=== PATIENT | male | born 1945 | race Caucasian/White ===

== ENCOUNTER 2022-02-02 10:15 | Outpatient (RCR) | payer MEDICARE, OTHER, SELFPAY ==
[2022-01-12 10:49] VITALS: BP 188/96; PULSE 66; RESP 16; TEMP 37; BMI 33.0
--- NOTE | 2022-01-12 12:02 | PCM.WC.HP ---
History of Present Illness Date of Service: 01/12/22 Progress of Wound: This 76-year-old male was seen for bilateral leg ulcerations with +1 pitting edema. Edema likely related to hypertension. Patient denies any constitutional symptoms denies any chest pain calf pain shortness of breath. Denies any previous treatments. Denies any use of compression elevation exercise for edema management and has no other complaints at this time. She has been dealing with these wounds for months and has not been treated previously. [facility], LAT[facility] Home Medications furosemide 80 mg tablet 40 mg PO DAILY 04/09/13 [History Last Taken Unknown] irbesartan 150 mg-hydrochlorothiazide 12.5 mg tablet (Avalide) 1 tab PO DAILY 04/09/13 [History Last Taken Unknown] lisinopril 20 mg tablet mg PO DAILY 04/09/13 [History Last Taken Unknown] lysine 500 mg capsule (L-Lysine) 500 mg PO DAILY 04/09/13 [History Last Taken Unknown] naproxen sodium 220 mg tablet (Aleve) 220 mg PO Q8 04/09/13 [History Last Taken Unknown] Ginko Biloba 120 mg OTHER DAILY 01/12/22 [History Last Taken Unknown] Олег's wort 300 mg capsule 300 mg PO DAILY PRN depression 01/12/22 [History Last Taken Unknown] acetaminophen 500 mg tablet (Acetaminophen Extra Strength) 500 mg PO Q6H PRN Pain 01/12/22 [History Last Taken Unknown] chlorpheniramine-acetaminophen 2 mg-325 mg tablet (Coricidin HBP Cold and Flu) 1 tab PO Q6H PRN Cold Symptoms 01/12/22 [History Last Taken Unknown] coenzyme Q10 100 mg capsule (Co Q-10) 100 mg PO DAILY 01/12/22 [History Last Taken Unknown] dextromethorphan-guaifenesin 30 mg-600 mg tablet extended [id number] hr (Mucinex DM) 1 tab PO Q12H PRN Cold Symptoms 01/12/22 [History Last Taken Unknown] ubxdmhydbsy-otm-mohnkwwqi-vitC capsule (Glucosamine Complex-MSM) 2 cap PO DAILY 01/12/22 [History Last Taken Unknown] magnesium 500 PO DAILY 01/12/22 [History Last Taken Unknown] vitamin A-vitamin C-vit E-min tablet 1 tab PO DAILY 01/12/22 [History Last Taken Unknown] zinc 50 mg tablet 50 mg PO DAILY 01/12/22 [History Last Taken Unknown] Allergy/AdvReac Type Severity Reaction Status Date / Time acetaminophen [From Vicodin] Allergy Other Verified 01/12/22 11:25 hydrocodone [From Vicodin] Allergy Other Verified 01/12/22 11:25 propoxyphene Allergy Swelling Verified 04/09/13 15:05 ROS Constitutional Constitutional: Denies chills, headache(s) or stops breathing during sleep Eyes Eyes: Denies acute decrease in peripheral vision, change in vision or double vision ENT HEENT: Denies ear pain, hoarseness or tinnitus Cardiovascular Cardiovascular: Denies abdominal pain, chest pain at rest or dizziness Respiratory/Chest Respiratory/Chest: Reports difficulty clearing secretions and excessive phlegm production; Denies change in mental status Gastrointestinal Gastrointestinal: Denies belching, coffee ground emesis or constipation Genitourinary Genitourinary: Denies genital pain, hematospermia or penile discharge Musculoskeletal Musculoskeletal: Denies myalgias, neck pain or numbness Vital Signs Vital Signs Vital Signs: 01/12/22 10:49 Temperature 98.6 F Temperature Source Temporal Pulse Rate 66 Respiratory Rate 16 Blood Pressure 188/96 H Blood Pressure Mean 126 Blood Pressure Source Monitor Blood Pressure Position Sitting Blood Pressure Location Left Arm Oxygen Delivery Method Room Air Weight Weight: 104.326 kg Body Mass Index (BMI) 33.0 Physical Exam Narrative Is alert oriented person place and time. Vascular: Dorsalis pedis posterior tibial pulses palpable 2 out of 4 to bilateral lower extremity. +1 pitting edema noted. Malleoli region as well as foot and mid calf. No obvious varicosities. Digital hair growth noted. Neurologic: Light touch protective sensation intact to bilateral feet Achilles tendon reflex intact. Dermatologic: Full-thickness wound to right lateral leg with multiple clustered wounds to bilateral lower extremities. These wounds are full-thickness in nature with no deep probing or undermining moderate serous drainage noted mild periwound erythema no other signs of infection. Musculoskeletal: Muscular strength full to bilateral lower extremity compartments. No pain with calf squeeze or palpation of popliteal fossa. Debridement Note Debridement Note Post-Debridement Measurements and Additional Note: Post-Debridement Measurements/Treatment ALEXSANDER - Nurse 1 - General Ulcer Assessment Start: 01/12/22 10:48 Freq: Status: Active Protocol: VICENTE Activity Type Activity Date Activity User E-sign Co-sign Detail Recorded Client Recorded Date Recorded By Document 01/12/22 10:49 [facility] [id number] 01/12/22 11:23 BM 01/12/22 10:49 WC - Today's Visit Information Type of service Initial Visit Arrival Mode Ambulatory,Cane ,Walker Accompanied by DAUGHTER Patient Identification Verified (Name & Yes ) Patient Requires Transmission-Based No Precautions Height and Weight Height 5 ft 10 in Weight 104.326 kg Weight in Pounds 230.0 lbs Weight Measurement Method Stated by Patient Body Mass Index (BMI) 33.0 BMI Classification Obese BSA - Cass 2.22 Vital Signs Temperature (97.8 F-99.1 F) 98.6 F Temperature Source Temporal Pulse Rate (60-100) 66 Pulse Location Monitor Respiratory Rate (12-18) 16 Respiratory rate source Observation Oxygen Delivery Method Room Air Blood Pressure (90/60-120/80) 188/96 H Blood Pressure Mean 126 Source Monitor Position Sitting Blood Pressure Location Left Arm Comment COUNSELED REGARDING BP. TAKES BP MEDS. History Since Last Visit- (Skip if this is Patient's initial visit) Left Footwear Regular Shoe Right Footwear Regular Shoe Pain Scale: 0-10 Numeric Is Patient Pain Free? Yes Lower Extremity Assessment/ Foot Assessment/ Toe Nail Assessment Right -Posterior Tibial Palpable No -Posterior Tibial Doppler Monophasic -Dorsalis Pedis Palpable Yes -Dorsalis Pedis Doppler Monophasic -Extremity Color Pale, Hyperpigmented, Hemosiderin -Hair Growth on Legs No -Hair Growth on Toes No -Temperature of Extremity Warm -Other Deformity No -Prior Foot Ulcer No -Charcot Joint No -Prior Amputation No -Thick Yes -Discolored Yes -Deformed No -Improper Length & Hygeine Yes Left -Posterior Tibial Palpable No -Posterior Tibial Doppler Monophasic -Dorsalis Pedis Palpable Yes -Dorsalis Pedis Doppler Multiphasic -Extremity Color Red,Pale, Hemosiderin -Hair Growth on Legs No -Hair Growth on Toes No -Temperature of Extremity Warm -Other Deformity No -Prior Foot Ulcer No -Charcot Joint No -Prior Amputation No -Thick Yes -Discolored Yes -Deformed No -Improper Length & Hygeine Yes Neuropathy Assessment Feet - Top Side and Bottom <Entered> (a) Communication Assessment Preferred language Colombian 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 Able to Read Yes Able to Write Yes Communication Tools None Right Hearing Abillity Normal Left Hearing Abillity Normal Visual Assistive Devices Glasses Teaching Assessment Preferences Verbal,Written, Audio/Visual, Demonstration Barriers to Learning None Readiness To Learn Excellent Willingness to Engage in Self Management High Activies Readiness to Engage in Self Management High Activities Anxiety Level Calm Cooperation Cooperative Perception Coherent Interest in Health Problem Asks Questions Education Importance Acknowledges Need Does Patient Smoke tobacco or other No substances Is Patient Diabetic No Functional Assessment Recent Decline in Ability to Perform Denies Any Declines Culture/Baptism/Orthopaedic Surgeon Cultural/Baptism Needs that may affect No Treatment Plan Teaching: Wound Center *Welcome to the Wound Center -Person Taught Patient,Family -Teaching Method Discussion -Response to teaching Verbalize understanding Welcome to the Wound Care Center Colombian (a) 1 - + WC - Nurse 1 - General Ulcer Measurement Start: 01/12/22 10:48 Freq: Status: Active Protocol: Activity Type Activity Date Activity User E-sign Co-sign Detail Recorded Client Recorded Date Recorded By Document 01/12/22 10:49 [facility] [id number] 01/12/22 11:23 [facility] 01/12/22 10:49 Wound Center Nurse 1 #3- LLE CLUSTER -Combined with other wound No -Current Size (cm) - Length 12 -Current Size (cm) - Width 10 -Current Size (cm) - Depth 0.1 -Total Square Cm 120 -Date of Last Picture (Recall this 01/12/22 field) -Photo Taken Yes -Epithelialization None Present -Tunneling No -Undermining/Tunneling No -Circular Undermining No -Exudate Amt Large -Exudate Type Serosanguineous -Wound Margin Distinct, Outline Attached -Granulation Amt Medium (34-66%) -Granulation Quality Red -Slough/Fibrin Yes -Necrosis Amt Medium (34-66%) -Necrotic Tissue Type Eschar -Texture (Joellen-wound Skin Appearance) Assessed, Scarring -Moisture (Joellen-wound Skin Appearance) Assessed, Weeping -Color (Joellen-wound Skin Appearance) Assessed, Erythema, Hemosiderin Staining -Temperature (Joellen-wound Skin No Abnormality Appearance) (Pt Warm) -Tenderness on Palpation (Joellne-wound No Skin Appearance) -Ulcer Cleansing Soap and Water -Foul Odor after Cleansing No -Anesthetic Used 4% Lidocaine Solution #2- R MED LE CLUSTER -Combined with other wound No -Current Size (cm) - Length 10.5 -Current Size (cm) - Width 14.5 -Current Size (cm) - Depth 0.1 -Total Square Cm 152.25 -Date of Last Picture (Recall this 01/12/22 field) -Photo Taken Yes -Epithelialization None Present -Tunneling No -Undermining/Tunneling No -Circular Undermining No -Exudate Amt Large -Exudate Type Serosanguineous -Wound Margin Distinct, Outline Attached -Granulation Amt Small (1-33%) -Granulation Quality Red -Slough/Fibrin Yes -Necrosis Amt Large (67-100%) -Necrotic Tissue Type Eschar -Texture (Joellen-wound Skin Appearance) Assessed, Scarring -Moisture (Joellen-wound Skin Appearance) Assessed, Weeping -Color (Joellen-wound Skin Appearance) Assessed, Erythema, Hemosiderin Staining -Temperature (Joellen-wound Skin No Abnormality Appearance) (Pt Warm) -Tenderness on Palpation (Joellen-wound Yes Skin Appearance) -Ulcer Cleansing Soap and Water -Foul Odor after Cleansing No -Anesthetic Used 4% Lidocaine Solution #1- R LAT LE -Combined with other wound No -Current Size (cm) - Length 3.3 -Current Size (cm) - Width 3.3 -Current Size (cm) - Depth 0.1 -Total Square Cm 10.89 -Date of Last Picture (Recall this 01/12/22 field) -Photo Taken Yes -Epithelialization None Present -Tunneling No -Undermining/Tunneling No -Circular Undermining No -Exudate Amt Medium -Exudate Type Serosanguineous -Wound Margin Distinct, Outline Attached -Granulation Amt Small (1-33%) -Granulation Quality Red -Slough/Fibrin Yes -Necrosis Amt Large (67-100%) -Necrotic Tissue Type Adherent Slough -Texture (Joellen-wound Skin Appearance) Assessed, Scarring -Moisture (Joellen-wound Skin Appearance) Assessed, Weeping -Color (Joellen-wound Skin Appearance) Assessed, Erythema, Hemosiderin Staining -Temperature (Joellen-wound Skin No Abnormality Appearance) (Pt Warm) -Tenderness on Palpation (Joellen-wound No Skin Appearance) -Ulcer Cleansing Soap and Water -Foul Odor after Cleansing No -Anesthetic Used 4% Lidocaine Solution Lower Limb Edema Present Yes Right Calf (cm) 43 Right Ankle (cm) 21.8 Left Calf (cm) 39.4 Left Ankle (cm) 21.2 Assessment/Plan Assessment/Plan (1) Venous insufficiency (chronic) (peripheral): CODE(S): I87.2 - Venous insufficiency (chronic) (peripheral) PLAN: Patient examined evaluated, all findings discussed with patient in detail. Peripheral edema noted. We will order venous and arterial studies to further evaluate. This time recommend compression elevation and exercise for edema management. Wounds appear to be noninfected at this time they were excisionally debrided to the right leg and left leg down to including level of subcutaneous tissue using a 5 mm dermal curette removing all nonviable tissue without incident. Topical anesthesia used. Hemostasis obtained with light compression. Consent obtained prior to procedure. Patient tolerated procedure well. Pre and postdebridement measurements document nursing notes Will apply silver alginate and Unna boot to bilateral legs. Patient will present for nursing change on Tuesday and will be present in 1 week for doctor evaluation. Will consider 3M wraps or additional grafting if required in the future. Due to length and inability to cut nails toenails were debrided x10 without incident today. (2) Non-pressure chronic ulcer of right calf with fat layer exposed: CODE(S): L97.212 - Non-pressure chronic ulcer of right calf with fat layer exposed (3) Non-pressure chronic ulcer of left calf with fat layer exposed: CODE(S): L97.222 - Non-pressure chronic ulcer of left calf with fat layer exposed
[2022-01-15 13:52] VITALS: BP 170/89; PULSE 72; TEMP 36.2; BMI 33.0
[2022-01-19 11:32] VITALS: BP 187/95; PULSE 67; TEMP 36.2; BMI 33.0
--- NOTE | 2022-01-19 12:05 | PN.PCM_ITS ---
History of Present Illness Date of Service: 01/19/22 Progress of Wound: This 76-year-old male was seen for bilateral leg ulcerations with +1 pitting edema. Edema likely related to hypertension. Patient denies any constitutional symptoms denies any chest pain calf pain shortness of breath. Denies any previous treatments. Denies any use of compression elevation exercise for edema management and has no other complaints at this time. She has been dealing with these wounds for months and has not been treated previously. Objective Data Objective Data Vital Signs: Vital Signs Temp Pulse Resp BP O2 Del Method 97.2 F L 67 16 187/95 H Room Air 01/19/22 11:32 01/19/22 11:32 01/12/22 10:49 01/19/22 11:32 01/12/22 10:49 Oxygen Delivery Method Room Air Weight: 104.326 kg Body Mass Index (BMI) 33.0 Physical Exam Narrative Is alert oriented person place and time. Vascular: Dorsalis pedis posterior tibial pulses palpable 2 out of 4 to bilateral lower extremity. +1 pitting edema noted. Malleoli region as well as foot and mid calf. No obvious varicosities. Digital hair growth noted. Neurologic: Light touch protective sensation intact to bilateral feet Achilles tendon reflex intact. Dermatologic: Full-thickness wound to right lateral leg with multiple clustered wounds to bilateral lower extremities. These wounds are full-thickness in nature with no deep probing or undermining moderate serous drainage noted mild periwound erythema no other signs of infection. Musculoskeletal: Muscular strength full to bilateral lower extremity compartments. No pain with calf squeeze or palpation of popliteal fossa. Debridement Note Debridement Note Post-Debridement Measurements and Additional Note: Post-Debridement Measurements/Treatment - Nurse 1 - General Ulcer Assessment Start: 01/12/22 10:48 Freq: Status: Active Protocol: [email or web address].LOWEXT Activity Type Activity Date Activity User E-sign Co-sign Detail Recorded Client Recorded Date Recorded By Document 01/12/22 10:49 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 ) Arrival Mode Ambulatory,Cane Wheelchair Ambulatory ,Walker Accompanied by DAUGHTER Patient Identification Verified (Name & Yes Yes Yes ) Patient Requires Transmission-Based No No Precautions Height and Weight Height 5 ft 10 in Weight 104.326 kg Weight in Pounds 230.0 lbs Weight Measurement Method Stated by Patient Body Mass Index (BMI) 33.0 33.0 33.0 BMI Classification Obese Obese Obese BSA - Cass 2.22 Vital Signs Temperature (97.8 F-99.1 F) 98.6 F 97.2 F L 97.2 F L Temperature Source Temporal Temporal Temporal Pulse Rate (60-100) 66 72 67 Pulse Location Monitor Monitor Monitor Respiratory Rate (12-18) 16 Respiratory rate source Observation Oxygen Delivery Method Room Air Blood Pressure (90/60-120/80) 188/96 H 170/89 H 187/95 H Blood Pressure Mean (mm Hg) 126 116 125 Source Monitor Monitor Monitor Position Sitting Sitting Blood Pressure Location Left Arm Right Arm Comment COUNSELED REGARDING BP. TAKES BP MEDS. History Since Last Visit- (Skip if this is Patient's initial visit) Have you changed medications since your No No last visit? Any new allergies or adverse reactions No No Had a fall/change in ADL's that may No No increase risk of falls Signs or symptoms of abuse and/or No No neglect since last visit Have you been in the hospital since your No No last visit? Has dressing in place as prescribed Yes Yes Has compression in place as prescribed Yes N/A Has offloadiing in place as prescribed N/A N/A Experienced any changes in pain level or No No management Left Footwear Regular Shoe Regular Shoe Right Footwear Regular Shoe Regular Shoe Pain Scale: 0-10 Numeric Is Patient Pain Free? Yes Yes No Lower Extremity Assessment/ Foot Assessment/ Toe Nail Assessment Right -Posterior Tibial Palpable No -Posterior Tibial Doppler Monophasic -Dorsalis Pedis Palpable Yes -Dorsalis Pedis Doppler Monophasic -Extremity Color Pale, Hyperpigmented, Hemosiderin -Hair Growth on Legs No -Hair Growth on Toes No -Temperature of Extremity Warm -Other Deformity No -Prior Foot Ulcer No -Charcot Joint No -Prior Amputation No -Thick Yes -Discolored Yes -Deformed No -Improper Length & Hygeine Yes Left -Posterior Tibial Palpable No -Posterior Tibial Doppler Monophasic -Dorsalis Pedis Palpable Yes -Dorsalis Pedis Doppler Multiphasic -Extremity Color Red,Pale, Hemosiderin -Hair Growth on Legs No -Hair Growth on Toes No -Temperature of Extremity Warm -Other Deformity No -Prior Foot Ulcer No -Charcot Joint No -Prior Amputation No -Thick Yes -Discolored Yes -Deformed No -Improper Length & Hygeine Yes Neuropathy Assessment Feet - Top Side and Bottom <Entered> (a) Communication Assessment Preferred language Vietnamese Rate Clerk Required No Able to Read Yes Able to Write Yes Communication Tools None Right Hearing Abillity Normal Left Hearing Abillity Normal Visual Assistive Devices Glasses Teaching Assessment Preferences Verbal,Written, Audio/Visual, Demonstration Barriers to Learning None Readiness To Learn Excellent Willingness to Engage in Self Management High Activies Readiness to Engage in Self Management High Activities Anxiety Level Calm Cooperation Cooperative Perception Coherent Interest in Health Problem Asks Questions Education Importance Acknowledges Need Does Patient Smoke tobacco or other No substances Is Patient Diabetic No Functional Assessment Recent Decline in Ability to Perform Denies Any Declines Culture/Anglican/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 [id number] 01/12/22 11:23 [facility] Document 01/19/22 11:32 LA [id number] 01/19/22 11:42 AK 01/12/22 01/19/22 10:49 11:32 Wound Center Nurse 1 #3- LLE CLUSTER -Combined with other wound No No -Current Size (cm) - Length 12 0.1 -Current Size (cm) - Width 10 0.1 -Current Size (cm) - Depth 0.1 0.1 -Total Square Cm 120 0.01 -Date of Last Picture (Recall this 01/12/22 field) -Photo Taken Yes No -Epithelialization None Present -Tunneling No No -Undermining/Tunneling No No -Circular Undermining No No -Change in Wound Grade/Stage No -Exudate Amt Large None Present -Exudate Type Serosanguineous -Wound Margin Distinct, Outline Attached -Granulation Amt Medium (34-66%) -Granulation Quality Red N/A -Slough/Fibrin Yes No -Necrosis Amt Medium (34-66%) None Present (0 %) -Necrotic Tissue Type Eschar -Structure Exposed N/A -Texture (Joellen-wound Skin Appearance) Assessed, No Abnormality, Scarring Assessed -Moisture (Joellen-wound Skin Appearance) Assessed, No Abnormality, Weeping Assessed -Color (Joellen-wound Skin Appearance) Assessed, No Abnormality, Erythema, Assessed Hemosiderin Staining -Temperature (Joellen-wound Skin No Abnormality No Abnormality Appearance) (Pt Warm) (Pt Warm) -Tenderness on Palpation (Joellen-wound No No Skin Appearance) -Ulcer Cleansing Soap and Water Soap and Water -Foul Odor after Cleansing No No -Anesthetic Used 4% Lidocaine 5% Lidocaine Solution Gel #2- R MED LE CLUSTER -Combined with other wound No No -Current Size (cm) - Length 10.5 0.1 -Current Size (cm) - Width 14.5 4 -Current Size (cm) - Depth 0.1 0.1 -Total Square Cm 152.25 0.4 -Date of Last Picture (Recall this 01/12/22 field) -Photo Taken Yes No -Epithelialization None Present -Tunneling No No -Undermining/Tunneling No No -Circular Undermining No No -Change in Wound Grade/Stage No -Exudate Amt Large None Present -Exudate Type Serosanguineous -Wound Margin Distinct, Distinct, Outline Outline Attached Attached -Granulation Amt Small (1-33%) None Present (0 %) -Granulation Quality Red N/A -Slough/Fibrin Yes No -Necrosis Amt Large (67-100%) None Present (0 %) -Necrotic Tissue Type Eschar -Structure Exposed N/A -Texture (Joellen-wound Skin Appearance) Assessed, No Abnormality, Scarring Assessed -Moisture (Joellen-wound Skin Appearance) Assessed, No Abnormality, Weeping Assessed -Color (Joellen-wound Skin Appearance) Assessed, No Abnormality, Erythema, Assessed Hemosiderin Staining -Temperature (Joellen-wound Skin No Abnormality No Abnormality Appearance) (Pt Warm) (Pt Warm) -Tenderness on Palpation (Joellen-wound Yes No Skin Appearance) -Ulcer Cleansing Soap and Water Soap and Water -Foul Odor after Cleansing No No -Anesthetic Used 4% Lidocaine 5% Lidocaine Solution Gel #1- R LAT LE -Combined with other wound No No -Current Size (cm) - Length 3.3 4 -Current Size (cm) - Width 3.3 3 -Current Size (cm) - Depth 0.1 0.1 -Total Square Cm 10.89 12 -Date of Last Picture (Recall this 01/12/22 field) -Photo Taken Yes No -Epithelialization None Present None Present -Tunneling No No -Undermining/Tunneling No No -Circular Undermining No No -Exudate Amt Medium Medium -Exudate Type Serosanguineous Serosanguineous -Wound Margin Distinct, Distinct, Outline Outline Attached Attached -Granulation Amt Small (1-33%) None Present (0 %) -Granulation Quality [place],Red -Slough/Fibrin Yes Yes -Necrosis Amt Large (67-100%) None Present (0 %) -Necrotic Tissue Type Adherent Slough Adherent Slough -Structure Exposed N/A -Texture (Joellen-wound Skin Appearance) Assessed, No Abnormality, Scarring Assessed -Moisture (Joellen-wound Skin Appearance) Assessed, No Abnormality, Weeping Assessed -Color (Joellen-wound Skin Appearance) Assessed, No Abnormality, Erythema, Assessed Hemosiderin Staining -Temperature (Joellen-wound Skin No Abnormality No Abnormality Appearance) (Pt Warm) (Pt Warm) -Tenderness on Palpation (Joellen-wound No No Skin Appearance) -Ulcer Cleansing Soap and Water Soap and Water -Foul Odor after Cleansing No No -Anesthetic Used 4% Lidocaine 5% Lidocaine Solution Gel Lower Limb Edema Present Yes Right Calf (cm) 43 Right Ankle (cm) 21.8 Left Calf (cm) 39.4 Left Ankle (cm) 21.2 WC - Nurse 2 - General Ulcer CM Notes Start: 01/12/22 10:48 Freq: Status: Active Protocol: Activity Type Activity Date Activity User E-sign Co-sign Detail Recorded Client Recorded Date Recorded By Document 01/12/22 11:58 MW [id number] 01/12/22 12:08 MW Document 01/19/22 11:43 [id number] 01/19/22 11:47 JF 01/12/22 01/19/22 11:58 11:43 Wound Center Nurse 2 #3- LLE CLUSTER -Time 11:58 -Correct Patient Yes No -Correct Side, Site, Position Yes No -Correct Procedure Yes No -Procedure Performed Yes No -Type of Procedure Debridement -Clinical Debridement Subcutaneous -Tissue Removed Subcutaneous -Post Debridement (cm) - Length 12.0 -Post Debridement (cm) - Width 10.0 -Post Debridement (cm) - Depth 0.1 -Total Square (Post) (cm) 120.00 -Area of Debridement (cm) - Length 12.0 -Area of Debridement (cm) - Width 10.0 -Total Square (Area) (cm) 120.00 -Tunneling No -Undermining/Tunneling No -Circular Undermining No -Wound/Ulcer Outcome Not Healed Not Healed -Ulcer Cleansing Rinsed/ Irrigated with Saline -Foul Odor after Cleansing No -Bioengineered Tissue No -Bleeding Controlled with Pressure -Treatment Response Procedure Tolerated Well -Offloading No -Debridement - Subq, 1st 20sq cm Yes -Debridement, SubQ, ea addt'l 20sq cm 14 or part thereof #2- R MED LE CLUSTER -Time 11:59 -Correct Patient Yes No -Correct Side, Site, Position Yes No -Correct Procedure Yes No -Procedure Performed Yes No -Type of Procedure Debridement -Clinical Debridement Subcutaneous -Tissue Removed Subcutaneous -Post Debridement (cm) - Length 10.6 -Post Debridement (cm) - Width 15.0 -Post Debridement (cm) - Depth 0.1 -Total Square (Post) (cm) 159.00 -Area of Debridement (cm) - Length 10.6 -Area of Debridement (cm) - Width 15.0 -Total Square (Area) (cm) 159.00 -Tunneling No -Undermining/Tunneling No -Circular Undermining No -Wound/Ulcer Outcome Not Healed Not Healed -Ulcer Cleansing Rinsed/ Irrigated with Saline -Foul Odor after Cleansing No -Bioengineered Tissue No -Bleeding Controlled with Pressure -Treatment Response Procedure Tolerated Well -Offloading No -Debridement - Subq, 1st 20sq cm No #1- R LAT LE -Time 11:59 11:44 -Correct Patient Yes Yes -Correct Side, Site, Position Yes Yes -Correct Procedure Yes Yes -Procedure Performed Yes Yes -Type of Procedure Debridement Debridement -Clinical Debridement Subcutaneous Subcutaneous -Tissue Removed Subcutaneous Subcutaneous -Post Debridement (cm) - Length 3.4 3.0 -Post Debridement (cm) - Width 3.4 2.0 -Post Debridement (cm) - Depth 0.1 0.1 -Total Square (Post) (cm) 11.56 6.00 -Area of Debridement (cm) - Length 3.4 3.0 -Area of Debridement (cm) - Width 3.4 2.0 -Total Square (Area) (cm) 11.56 6.00 -Tunneling No No -Undermining/Tunneling No No -Circular Undermining No No -Wound/Ulcer Outcome Not Healed Not Healed -Ulcer Cleansing Rinsed/ Rinsed/ Irrigated with Irrigated with Saline Saline -Foul Odor after Cleansing No No -Bioengineered Tissue No No -Bleeding Controlled with Pressure Pressure -Treatment Response Procedure Procedure Tolerated Well Tolerated Well -Offloading No No -Debridement - Subq, 1st 20sq cm No Yes Pain Scale: 0-10 Numeric Is Patient Pain Free? Yes Yes WC - Nurse 3 - General Ulcer D/C NN Start: 01/12/22 10:48 Freq: Status: Active Protocol: Activity Type Activity Date Activity User E-sign Co-sign Detail Recorded Client Recorded Date Recorded By Document 01/12/22 12:08 MW [id number] 01/12/22 12:10 MW Document 01/15/22 13:52 KR [id number] 01/15/22 13:54 KR Document 01/19/22 11:54 LA [id number] 01/19/22 11:55 AK 01/12/22 01/15/22 01/19/22 12:08 13:52 11:54 Wound Care Nurse 3 #3- LLE CLUSTER -Ulcer Cleansing Rinsed/ Soap and Water Soap and Water Irrigated with Saline -Foul Odor after Cleansing No No -Negative Pressure Wound Therapy N/A N/A -Primary Dressing Applied Aquacel AG 4x4 Aquacel AG 2x2 -Primary Dressing Covered/Secured with Dry Gauze, Secured with Tape -Aquacel AG 4x4 1 -Aquacel AG 2x2 1 #2- R MED LE CLUSTER -Ulcer Cleansing Rinsed/ Soap and Water Soap and Water Irrigated with Saline -Foul Odor after Cleansing No No -Negative Pressure Wound Therapy N/A N/A -Primary Dressing Applied Aquacel AG 2x2 -Other Dressing aquacel AG -Primary Dressing Covered/Secured with Dry Gauze -Aquacel AG 2x2 1 #1- R LAT LE -Ulcer Cleansing Rinsed/ Soap and Water Irrigated with Saline -Foul Odor after Cleansing No No -Negative Pressure Wound Therapy N/A N/A -Other Dressing Aquacel AG -Primary Dressing Covered/Secured with Dry Gauze Bilateral LE -Lotion applied to leg before No No compression wrap -Multi-Layered Wrap Application Unna Boot - Unna Boot - Unna Boot - Bilateral ($) Bilateral ($) Bilateral ($) -Unna Boots (Bilat) ($) 2 2 2 Treatment Response Procedure Tolerated Well Vital Signs Temperature (97.8 F-99.1 F) 97.2 F L Temperature Source Temporal Pulse Rate (60-100) 72 Pulse Location Monitor Blood Pressure (90/60-120/80) 170/89 H Blood Pressure Mean (mm Hg) 116 Source Monitor Position Sitting Blood Pressure Location Right Arm Pain Scale: 0-10 Numeric Is Patient Pain Free? Yes Yes Yes Teaching: Wound Center Dressing Your Wound -Person Taught Patient,Family -Teaching Method Discussion, Demonstration -Response to teaching Verbalize understanding WC - Visit Discharge Discharge Condition Stable Stable Stable Ambulatory Status Ambulatory Wheelchair Ambulatory Transportation Private Auto Private Auto Private Auto Accompanied by daughter daughter son Medication Reconcilliation completed & No Yes provided to patient/care provider Clinical Summary of Care Provided Yes Yes Assessment/Plan Assessment/Plan (1) Venous insufficiency (chronic) (peripheral): CODE(S): I87.2 - Venous insufficiency (chronic) (peripheral) PLAN: Patient examined evaluated, all findings discussed with patient in detail. Wounds and edema resolving significantly at this time. Patient vascular studies are scheduled for March 01, 2022. Peripheral edema noted. We will order venous and arterial studies to further evaluate. This time recommend compression elevation and exercise for edema management. Wounds appear to be noninfected at this time they were excisionally debrided to the right leg and left leg down to including level of subcutaneous tissue using a 5 mm dermal curette removing all nonviable tissue without incident. Topical anesthesia used. Hemostasis obtained with light compression. Consent obtained prior to procedure. Patient tolerated procedure well. Pre and postdebridement measurements document nursing notes Will apply silver alginate and Unna boot to bilateral legs. Patient will present for nursing change on Tuesday and will be present in 1 week for doctor evaluation. Will consider 3M wraps or additional grafting if required in the future. (2) Non-pressure chronic ulcer of right calf with fat layer exposed: CODE(S): L97.212 - Non-pressure chronic ulcer of right calf with fat layer exposed (3) Non-pressure chronic ulcer of left calf with fat layer exposed: CODE(S): L97.222 - Non-pressure chronic ulcer of left calf with fat layer exposed
[2022-01-26 10:26] VITALS: BP 178/93; PULSE 66; RESP 20; TEMP 37.3; BMI 33.0
--- NOTE | 2022-01-26 11:10 | PN.PCM_ITS ---
History of Present Illness Date of Service: 01/26/22 Progress of Wound: This 76-year-old male was seen for bilateral leg ulcerations with +1 pitting edema. Edema likely related to hypertension. Patient denies any constitutional symptoms denies any chest pain calf pain shortness of breath. Denies any previous treatments. Denies any use of compression elevation exercise for edema management and has no other complaints at this time. She has been dealing with these wounds for months and has not been treated previously. Objective Data Objective Data Vital Signs: Vital Signs Temp Pulse Resp BP O2 Del Method 99.2 F H 66 20 H 178/93 H Room Air 01/26/22 10:26 01/26/22 10:26 01/26/22 10:26 01/26/22 10:26 01/12/22 10:49 Oxygen Delivery Method Room Air Weight: 104.326 kg Body Mass Index (BMI) 33.0 Physical Exam Narrative Is alert oriented person place and time. Vascular: Dorsalis pedis posterior tibial pulses palpable 2 out of 4 to bilateral lower extremity. +1 pitting edema noted. Malleoli region as well as foot and mid calf. No obvious varicosities. Digital hair growth noted. Neurologic: Light touch protective sensation intact to bilateral feet Achilles tendon reflex intact. Dermatologic: Full-thickness wound to right lateral leg with multiple clustered wounds to bilateral lower extremities. These wounds are full-thickness in nature with no deep probing or undermining moderate serous drainage noted mild periwound erythema no other signs of infection. Musculoskeletal: Muscular strength full to bilateral lower extremity compartments. No pain with calf squeeze or palpation of popliteal fossa. Debridement Note Debridement Note Post-Debridement Measurements and Additional Note: Post-Debridement Measurements/Treatment - Nurse 1 - General Ulcer Assessment Start: 01/12/22 10:48 Freq: Status: Active Protocol: [email or web address].LOWEXT Activity Type Activity Date Activity User E-sign Co-sign Detail Recorded Client Recorded Date Recorded By Document 01/12/22 10:49 [facility] [id number] 01/12/22 11:23 BMF Document 01/15/22 13:52 KR [id number] 01/15/22 13:54 KR Document 01/19/22 11:32 AK [id number] 01/19/22 11:42 AK Document 01/26/22 10:26 DL [id number] 01/26/22 10:40 DL 01/12/22 01/15/22 01/19/22 10:49 13:52 11:32 WC - Today's Visit Information Type of service Initial Visit Nurse-only Follow-up Visit Visit (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/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 ) Arrival Mode Ambulatory,Cane Wheelchair Ambulatory ,Walker Transfer Assistance Accompanied by DAUGHTER Patient Identification Verified (Name & Yes Yes Yes ) Patient Requires Transmission-Based No No Precautions Height and Weight Height 5 ft 10 in Weight 104.326 kg Weight in Pounds 230.0 lbs Weight Measurement Method Stated by Patient Body Mass Index (BMI) 33.0 33.0 33.0 BMI Classification Obese Obese Obese BSA - Csas 2.22 Vital Signs Temperature (97.8 F-99.1 F) 98.6 F 97.2 F L 97.2 F L Temperature Source Temporal Temporal Temporal Pulse Rate (60-100) 66 72 67 Pulse Location Monitor Monitor Monitor Respiratory Rate (12-18) 16 Respiratory rate source Observation Oxygen Delivery Method Room Air Blood Pressure (90/60-120/80) 188/96 H 170/89 H 187/95 H Blood Pressure Mean (mm Hg) 126 116 125 Source Monitor Monitor Monitor Position Sitting Sitting Blood Pressure Location Left Arm Right Arm Comment COUNSELED REGARDING BP. TAKES BP MEDS. History Since Last Visit- (Skip if this is Patient's initial visit) Have you changed medications since your No No last visit? Any new allergies or adverse reactions No No Had a fall/change in ADL's that may No No increase risk of falls Signs or symptoms of abuse and/or No No neglect since last visit Have you been in the hospital since your No No last visit? Has dressing in place as prescribed Yes Yes Has compression in place as prescribed Yes N/A Has offloadiing in place as prescribed N/A N/A Experienced any changes in pain level or No No management Left Footwear Regular Shoe Regular Shoe Right Footwear Regular Shoe Regular Shoe Pain Scale: 0-10 Numeric Is Patient Pain Free? Yes Yes No Lower Extremity Assessment/ Foot Assessment/ Toe Nail Assessment Right -Posterior Tibial Palpable No -Posterior Tibial Doppler Monophasic -Dorsalis Pedis Palpable Yes -Dorsalis Pedis Doppler Monophasic -Extremity Color Pale, Hyperpigmented, Hemosiderin -Hair Growth on Legs No -Hair Growth on Toes No -Temperature of Extremity Warm -Other Deformity No -Prior Foot Ulcer No -Charcot Joint No -Prior Amputation No -Thick Yes -Discolored Yes -Deformed No -Improper Length & Hygeine Yes Left -Posterior Tibial Palpable No -Posterior Tibial Doppler Monophasic -Dorsalis Pedis Palpable Yes -Dorsalis Pedis Doppler Multiphasic -Extremity Color Red,Pale, Hemosiderin -Hair Growth on Legs No -Hair Growth on Toes No -Temperature of Extremity Warm -Other Deformity No -Prior Foot Ulcer No -Charcot Joint No -Prior Amputation No -Thick Yes -Discolored Yes -Deformed No -Improper Length & Hygeine Yes Neuropathy Assessment Feet - Top Side and Bottom <Entered> (a) Communication Assessment Preferred language Kiswahili Braiding Operator Required No Able to Read Yes Able to Write Yes Communication Tools None Right Hearing Abillity Normal Left Hearing Abillity Normal Visual Assistive Devices Glasses Teaching Assessment Preferences Verbal,Written, Audio/Visual, Demonstration Barriers to Learning None Readiness To Learn Excellent Willingness to Engage in Self Management High Activies Readiness to Engage in Self Management High Activities Anxiety Level Calm Cooperation Cooperative Perception Coherent Interest in Health Problem Asks Questions Education Importance Acknowledges Need Does Patient Smoke tobacco or other No substances Is Patient Diabetic No Functional Assessment Recent Decline in Ability to Perform Denies Any Declines Culture/Buddhism/Immigration Consultant Cultural/Buddhism Needs that may affect No Treatment Plan Teaching: Wound Center *Welcome to the Wound Center -Person Taught Patient,Family -Teaching Method Discussion -Response to teaching Verbalize understanding Welcome to the Wound Care Center Kiswahili 01/26/22 10:26 WC - Today's Visit Information Type of service Follow-up Visit (Physician/INDUSTRIAL 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 TEACHER ) Arrival Mode Ambulatory, Walker Transfer Assistance None Accompanied by Patient Identification Verified (Name & Yes ) Patient Requires Transmission-Based No Precautions Height and Weight Height Weight Weight in Pounds Weight Measurement Method Body Mass Index (BMI) 33.0 BMI Classification Obese BSA - [place] Vital Signs Temperature (97.8 F-99.1 F) 99.2 F H Temperature Source Temporal Pulse Rate (60-100) 66 Pulse Location Respiratory Rate (12-18) 20 H Respiratory rate source Observation Oxygen Delivery Method Blood Pressure (90/60-120/80) 178/93 H Blood Pressure Mean (mm Hg) 121 Source Monitor Position Blood Pressure Location Comment History Since Last Visit- (Skip if this is Patient's initial visit) Have you changed medications since your No last visit? Any new allergies or adverse reactions No Had a fall/change in ADL's that may No increase risk of falls Signs or symptoms of abuse and/or No neglect since last visit Have you been in the hospital since your No last visit? Has dressing in place as prescribed Yes Has compression in place as prescribed Yes Has offloadiing in place as prescribed N/A Experienced any changes in pain level or No management Left Footwear Regular Shoe Right Footwear Regular Shoe Pain Scale: 0-10 Numeric Is Patient Pain Free? Yes Lower Extremity Assessment/ Foot Assessment/ Toe Nail Assessment Right -Posterior Tibial Palpable -Posterior Tibial Doppler -Dorsalis Pedis Palpable -Dorsalis Pedis Doppler -Extremity Color -Hair Growth on Legs -Hair Growth on Toes -Temperature of Extremity -Other Deformity -Prior Foot Ulcer -Charcot Joint -Prior Amputation -Thick -Discolored -Deformed -Improper Length & Hygeine Left -Posterior Tibial Palpable -Posterior Tibial Doppler -Dorsalis Pedis Palpable -Dorsalis Pedis Doppler -Extremity Color -Hair Growth on Legs -Hair Growth on Toes -Temperature of Extremity -Other Deformity -Prior Foot Ulcer -Charcot Joint -Prior Amputation -Thick -Discolored -Deformed -Improper Length & Hygeine Neuropathy Assessment Feet - Top Side and Bottom Communication Assessment Preferred speech and language specialist Required Able to Read Able to Write Communication Tools Right Hearing Abillity Left Hearing Abillity Visual Assistive Devices Teaching Assessment Preferences Barriers to Learning Readiness To Learn Willingness to Engage in Self Management Activies Readiness to Engage in Self Management Activities Anxiety Level Cooperation Perception Interest in Health Problem Education Importance Does Patient Smoke tobacco or other substances Is Patient Diabetic Functional Assessment Recent Decline in Ability to Perform Culture/Buddhism/Immigration Consultant Cultural/Buddhism Needs that may affect Treatment Plan Teaching: Wound Center *Welcome to the Wound Center -Person Taught -Teaching Method -Response to teaching Welcome to the Wound Care Center (a) 1 - + WC - Nurse 1 - General Ulcer Measurement Start: 01/12/22 10:48 Freq: Status: Active Protocol: Activity Type Activity Date Activity User E-sign Co-sign Detail Recorded Client Recorded Date Recorded By Document 01/12/22 10:49 [facility] [id number] 01/12/22 11:23 BMF Document 01/19/22 11:32 AK [id number] 01/19/22 11:42 AK Document 01/26/22 10:26 DL [id number] 01/26/22 10:40 DL 01/12/22 01/19/22 01/26/22 10:49 11:32 10:26 Wound Center Nurse 1 #3- LLE CLUSTER -Combined with other wound No No -Current Size (cm) - Length 12 0.1 0.1 -Current Size (cm) - Width 10 0.1 0.1 -Current Size (cm) - Depth 0.1 0.1 0.1 -Total Square Cm 120 0.01 0.01 -Date of Last Picture (Recall this 01/12/22 field) -Photo Taken Yes No No -Epithelialization None Present -Tunneling No No -Undermining/Tunneling No No -Circular Undermining No No -Change in Wound Grade/Stage No -Exudate Amt Large None Present None Present -Exudate Type Serosanguineous -Wound Margin Distinct, Indistinct, Non Outline -Visible Attached -Granulation Amt Medium (34-66%) Large (67-100%) -Granulation Quality Red N/A [place] -Slough/Fibrin Yes No -Necrosis Amt Medium (34-66%) None Present (0 None Present (0 %) %) -Necrotic Tissue Type Eschar -Structure Exposed N/A N/A -Texture (Joellen-wound Skin Appearance) Assessed, No Abnormality, Excoriation, Scarring Assessed Scarring -Moisture (Joellen-wound Skin Appearance) Assessed, No Abnormality, Dry/Scaly Weeping Assessed -Color (Joellen-wound Skin Appearance) Assessed, No Abnormality, Hemosiderin Erythema, Assessed Staining Hemosiderin Staining -Temperature (Joellen-wound Skin No Abnormality No Abnormality No Abnormality Appearance) (Pt Warm) (Pt Warm) (Pt Warm) -Tenderness on Palpation (Joellen-wound No No No Skin Appearance) -Ulcer Cleansing Soap and Water Soap and Water Soap and Water -Foul Odor after Cleansing No No No -Anesthetic Used 4% Lidocaine 5% Lidocaine Solution Gel #2- R MED LE CLUSTER -Combined with other wound No No -Current Size (cm) - Length 10.5 0.1 0.1 -Current Size (cm) - Width 14.5 4 0.1 -Current Size (cm) - Depth 0.1 0.1 0.1 -Total Square Cm 152.25 0.4 0.01 -Date of Last Picture (Recall this 01/12/22 field) -Photo Taken Yes No No -Epithelialization None Present -Tunneling No No -Undermining/Tunneling No No -Circular Undermining No No -Change in Wound Grade/Stage No -Exudate Amt Large None Present None Present -Exudate Type Serosanguineous -Wound Margin Distinct, Distinct, Indistinct, Non Outline Outline -Visible Attached Attached -Granulation Amt Small (1-33%) None Present (0 Large (67-100%) %) -Granulation Quality Red N/A [place] -Slough/Fibrin Yes No -Necrosis Amt Large (67-100%) None Present (0 None Present (0 %) %) -Necrotic Tissue Type Eschar -Structure Exposed N/A N/A -Texture (Joellen-wound Skin Appearance) Assessed, No Abnormality, Scarring Scarring Assessed -Moisture (Joellen-wound Skin Appearance) Assessed, No Abnormality, Dry/Scaly Weeping Assessed -Color (Joellen-wound Skin Appearance) Assessed, No Abnormality, Hemosiderin Erythema, Assessed Staining Hemosiderin Staining -Temperature (Joellen-wound Skin No Abnormality No Abnormality No Abnormality Appearance) (Pt Warm) (Pt Warm) (Pt Warm) -Tenderness on Palpation (Joellen-wound Yes No No Skin Appearance) -Ulcer Cleansing Soap and Water Soap and Water Soap and Water -Foul Odor after Cleansing No No No -Anesthetic Used 4% Lidocaine 5% Lidocaine Solution Gel #1- R LAT LE -Combined with other wound No No -Current Size (cm) - Length 3.3 4 0.1 -Current Size (cm) - Width 3.3 3 0.1 -Current Size (cm) - Depth 0.1 0.1 0.1 -Total Square Cm 10.89 12 0.01 -Date of Last Picture (Recall this 01/12/22 field) -Photo Taken Yes No No -Epithelialization None Present None Present -Tunneling No No -Undermining/Tunneling No No -Circular Undermining No No -Exudate Amt Medium Medium Small -Exudate Type Serosanguineous Serosanguineous Serosanguineous -Wound Margin Distinct, Distinct, Distinct, Outline Outline Outline Attached Attached Attached -Granulation Amt Small (1-33%) None Present (0 Large (67-100%) %) -Granulation Quality Red [place] -Slough/Fibrin Yes Yes -Necrosis Amt Large (67-100%) None Present (0 Small (1-33%) %) -Necrotic Tissue Type Adherent Slough Adherent Slough Adherent Slough -Structure Exposed N/A N/A -Texture (Joellen-wound Skin Appearance) Assessed, No Abnormality, Scarring Scarring Assessed -Moisture (Joellen-wound Skin Appearance) Assessed, No Abnormality, Dry/Scaly Weeping Assessed -Color (Joellen-wound Skin Appearance) Assessed, No Abnormality, Hemosiderin Erythema, Assessed Staining Hemosiderin Staining -Temperature (Joellen-wound Skin No Abnormality No Abnormality No Abnormality Appearance) (Pt Warm) (Pt Warm) (Pt Warm) -Tenderness on Palpation (Joellen-wound No No Skin Appearance) -Ulcer Cleansing Soap and Water Soap and Water Soap and Water -Foul Odor after Cleansing No No No -Anesthetic Used 4% Lidocaine 5% Lidocaine 4% Lidocaine Solution Gel Solution Lower Limb Edema Present Yes Right Calf (cm) 43 41 Right Ankle (cm) 21.8 21.7 Left Calf (cm) 39.4 37 Left Ankle (cm) 21.2 20.7 WC - Nurse 2 - General Ulcer CM Notes Start: 01/12/22 10:48 Freq: Status: Active Protocol: Activity Type Activity Date Activity User E-sign Co-sign Detail Recorded Client Recorded Date Recorded By Document 01/12/22 11:58 [id number] 01/12/22 12:08 Document 01/19/22 11:43 [id number] 01/19/22 11:47 Document 01/26/22 10:59 [id number] 01/26/22 11:01 01/12/22 01/19/22 01/26/22 11:58 11:43 10:59 Wound Center Nurse 2 #3- LLE CLUSTER -Time 11:58 -Correct Patient Yes No No -Correct Side, Site, Position Yes No No -Correct Procedure Yes No No -Procedure Performed Yes No No -Type of Procedure Debridement -Clinical Debridement Subcutaneous -Tissue Removed Subcutaneous -Post Debridement (cm) - Length 12.0 0 -Post Debridement (cm) - Width 10.0 0 -Post Debridement (cm) - Depth 0.1 0 -Total Square (Post) (cm) 120.00 0 -Area of Debridement (cm) - Length 12.0 0 -Area of Debridement (cm) - Width 10.0 0 -Total Square (Area) (cm) 120.00 0 -Tunneling No -Undermining/Tunneling No -Circular Undermining No -Wound/Ulcer Outcome Not Healed Not Healed Healed- Epithelialized -Ulcer Cleansing Rinsed/ Irrigated with Saline -Foul Odor after Cleansing No -Bioengineered Tissue No -Bleeding Controlled with Pressure -Treatment Response Procedure Tolerated Well -Offloading No -Debridement - Subq, 1st 20sq cm Yes -Debridement, SubQ, ea addt'l 20sq cm 14 or part thereof #2- R MED LE CLUSTER -Time 11:59 -Correct Patient Yes No No -Correct Side, Site, Position Yes No No -Correct Procedure Yes No No -Procedure Performed Yes No No -Type of Procedure Debridement -Clinical Debridement Subcutaneous -Tissue Removed Subcutaneous -Post Debridement (cm) - Length 10.6 0 -Post Debridement (cm) - Width 15.0 0 -Post Debridement (cm) - Depth 0.1 0 -Total Square (Post) (cm) 159.00 0 -Area of Debridement (cm) - Length 10.6 0 -Area of Debridement (cm) - Width 15.0 0 -Total Square (Area) (cm) 159.00 0 -Tunneling No -Undermining/Tunneling No -Circular Undermining No -Wound/Ulcer Outcome Not Healed Not Healed Healed- Epithelialized -Ulcer Cleansing Rinsed/ Irrigated with Saline -Foul Odor after Cleansing No -Bioengineered Tissue No -Bleeding Controlled with Pressure -Treatment Response Procedure Tolerated Well -Offloading No -Debridement - Subq, 1st 20sq cm No #1- R LAT LE -Time 11:59 11:44 -Correct Patient Yes Yes Yes -Correct Side, Site, Position Yes Yes Yes -Correct Procedure Yes Yes Yes -Procedure Performed Yes Yes Yes -Type of Procedure Debridement Debridement Debridement -Clinical Debridement Subcutaneous Subcutaneous Subcutaneous -Tissue Removed Subcutaneous Subcutaneous Subcutaneous -Post Debridement (cm) - Length 3.4 3.0 0.5 -Post Debridement (cm) - Width 3.4 2.0 0.5 -Post Debridement (cm) - Depth 0.1 0.1 0.1 -Total Square (Post) (cm) 11.56 6.00 0.25 -Area of Debridement (cm) - Length 3.4 3.0 0.5 -Area of Debridement (cm) - Width 3.4 2.0 0.5 -Total Square (Area) (cm) 11.56 6.00 0.25 -Tunneling No No No -Undermining/Tunneling No No No -Circular Undermining No No No -Wound/Ulcer Outcome Not Healed Not Healed Not Healed -Ulcer Cleansing Rinsed/ Rinsed/ Rinsed/ Irrigated with Irrigated with Irrigated with Saline Saline Saline -Foul Odor after Cleansing No No No -Bioengineered Tissue No No No -Bleeding Controlled with Pressure Pressure Pressure -Treatment Response Procedure Procedure Procedure Tolerated Well Tolerated Well Tolerated Well -Offloading No No No -Debridement - Subq, 1st 20sq cm No Yes Yes Pain Scale: 0-10 Numeric Is Patient Pain Free? Yes Yes Yes WC - Nurse 3 - General Ulcer D/C NN Start: 01/12/22 10:48 Freq: Status: Active Protocol: Activity Type Activity Date Activity User E-sign Co-sign Detail Recorded Client Recorded Date Recorded By Document 01/12/22 12:08 MW [id number] 01/12/22 12:10 MW Document 01/15/22 13:52 KR [id number] 01/15/22 13:54 KR Document 01/19/22 11:54 AK [id number] 01/19/22 11:55 AK Document 01/25/22 06:59 PL [id number] 01/25/22 07:00 PL Document 01/26/22 11:03 DL [id number] 01/26/22 11:06 DL Edit Result 01/26/22 11:03 DL (1) [id number] 01/26/22 11:08 DL (1) Notes: => dressings applied today per Madeleine Cook 01/12/22 01/15/22 01/19/22 12:08 13:52 11:54 Wound Care Nurse 3 #3- LLE CLUSTER -Ulcer Cleansing Rinsed/ Soap and Water Soap and Water Irrigated with Saline -Foul Odor after Cleansing No No -Negative Pressure Wound Therapy N/A N/A -Primary Dressing Applied Aquacel AG 4x4 Aquacel AG 2x2 -Primary Dressing Covered/Secured with Dry Gauze, Secured with Tape -Aquacel AG 4x4 1 -Aquacel AG 2x2 1 #2- R MED LE CLUSTER -Ulcer Cleansing Rinsed/ Soap and Water Soap and Water Irrigated with Saline -Foul Odor after Cleansing No No -Negative Pressure Wound Therapy N/A N/A -Primary Dressing Applied Aquacel AG 2x2 -Other Dressing aquacel AG -Primary Dressing Covered/Secured with Dry Gauze -Aquacel AG 2x2 1 #1- R LAT LE -Ulcer Cleansing Rinsed/ Soap and Water Irrigated with Saline -Foul Odor after Cleansing No No -Negative Pressure Wound Therapy N/A N/A -Other Dressing Aquacel AG -Primary Dressing Covered/Secured with Dry Gauze Bilateral LE -Lotion applied to leg before No No compression wrap -Multi-Layered Wrap Application Unna Boot - Unna Boot - Unna Boot - Bilateral ($) Bilateral ($) Bilateral ($) -Unna Boots (Bilat) ($) 2 2 2 Treatment Response Procedure Tolerated Well Vital Signs Temperature (97.8 F-99.1 F) 97.2 F L Temperature Source Temporal Pulse Rate (60-100) 72 Pulse Location Monitor Blood Pressure (90/60-120/80) 170/89 H Blood Pressure Mean (mm Hg) 116 Source Monitor Position Sitting Blood Pressure Location Right Arm Pain Scale: 0-10 Numeric Is Patient Pain Free? Yes Yes Yes Teaching: Wound Center Dressing Your Wound -Person Taught Patient,Family -Teaching Method Discussion, Demonstration -Response to teaching Verbalize understanding WC - Visit Discharge Discharge Condition Stable Stable Stable Ambulatory Status Ambulatory Wheelchair Ambulatory Transportation Private Auto Private Auto Private Auto Accompanied by daughter daughter son Medication Reconcilliation completed & No Yes provided to patient/care provider Clinical Summary of Care Provided Yes Yes Notes: 01/25/22 01/26/22 06:59 11:03 Wound Care Nurse 3 #3- LLE CLUSTER -Ulcer Cleansing -Foul Odor after Cleansing -Negative Pressure Wound Therapy -Primary Dressing Applied -Primary Dressing Covered/Secured with -Aquacel AG 4x4 -Aquacel AG 2x2 #2- R MED LE CLUSTER -Ulcer Cleansing -Foul Odor after Cleansing -Negative Pressure Wound Therapy -Primary Dressing Applied -Other Dressing -Primary Dressing Covered/Secured with -Aquacel AG 2x2 #1- R LAT LE -Ulcer Cleansing Rinsed/ Irrigated with Saline -Foul Odor after Cleansing No -Negative Pressure Wound Therapy -Other Dressing -Primary Dressing Covered/Secured with Bilateral LE -Lotion applied to leg before compression wrap -Multi-Layered Wrap Application Unna Boot - Unna Boot - Bilateral ($) Bilateral ($) -Unna Boots (Bilat) ($) 2 2 Treatment Response Vital Signs Temperature (97.8 F-99.1 F) Temperature Source Pulse Rate (60-100) Pulse Location Blood Pressure (90/60-120/80) Blood Pressure Mean (mm Hg) Source Position Blood Pressure Location Pain Scale: 0-10 Numeric Is Patient Pain Free? Yes Yes Teaching: Wound Center Dressing Your Wound -Person Taught -Teaching Method -Response to teaching WC - Visit Discharge Discharge Condition Stable Stable Ambulatory Status Walker Ambulatory, Walker Transportation Private Auto Private Auto Accompanied by Medication Reconcilliation completed & provided to patient/care provider Clinical Summary of Care Provided Notes: dressings applied today per Madeleine Cook Assessment/Plan Assessment/Plan (1) Venous insufficiency (chronic) (peripheral): CODE(S): I87.2 - Venous insufficiency (chronic) (peripheral) PLAN: Patient examined evaluated, all findings discussed with patient in detail. Right medial leg wounds healed. Left medial leg wounds healed. Right lateral leg wound significantly improved. Awaiting new arterial and venous studies. This time recommend compression elevation and exercise for edema management. Right lateral leg wound was excisionally debrided to the right leg and left leg down to including level of subcutaneous tissue using a 5 mm dermal curette removing all nonviable tissue without incident. Topical anesthesia used. Hemostasis obtained with light compression. Consent obtained prior to procedure. Patient tolerated procedure well. Pre and postdebridement measurements document nursing notes Will apply silver alginate and Unna boot to bilateral legs. Patient will present for nursing change on Tuesday and will be present in 1 week for doctor evaluation. (2) Non-pressure chronic ulcer of right calf with fat layer exposed: CODE(S): L97.212 - Non-pressure chronic ulcer of right calf with fat layer exposed (3) Non-pressure chronic ulcer of left calf with fat layer exposed: CODE(S): L97.222 - Non-pressure chronic ulcer of left calf with fat layer exposed
[2022-02-02 10:20] VITALS: BP 147/62; PULSE 87; TEMP 36.2; BMI 33.0
--- NOTE | 2022-02-02 10:21 | WC ---
struggled walking today even with walker. He is sweaty and I had im sit and take a break. PT denies being diabetic or dizzy
--- NOTE | 2022-02-02 10:34 | PN.PCM_ITS ---
History of Present Illness Date of Service: 02/02/22 Progress of Wound: This 76-year-old male was seen for bilateral leg ulcerations with +1 pitting edema. Edema likely related to hypertension. Patient denies any constitutional symptoms denies any chest pain calf pain shortness of breath. Denies any previous treatments. Denies any use of compression elevation exercise for edema management and has no other complaints at this time. She has been dealing with these wounds for months and has not been treated previously. Objective Data Objective Data Vital Signs: Vital Signs Temp Pulse Resp BP O2 Del Method 97.2 F L 87 20 H 147/62 H Room Air 02/02/22 10:20 02/02/22 10:20 01/26/22 10:26 02/02/22 10:20 01/12/22 10:49 Oxygen Delivery Method Room Air Weight: 104.326 kg Body Mass Index (BMI) 33.0 Physical Exam Narrative Is alert oriented person place and time. Vascular: Dorsalis pedis posterior tibial pulses palpable 2 out of 4 to bilateral lower extremity. +1 pitting edema noted. Malleoli region as well as foot and mid calf. No obvious varicosities. Digital hair growth noted. Neurologic: Light touch protective sensation intact to bilateral feet Achilles tendon reflex intact. Dermatologic: Full-thickness wound to right lateral leg with multiple clustered wounds to bilateral lower extremities. These wounds are full-thickness in nature with no deep probing or undermining moderate serous drainage noted mild periwound erythema no other signs of infection. Musculoskeletal: Muscular strength full to bilateral lower extremity compartments. No pain with calf squeeze or palpation of popliteal fossa. Debridement Note Debridement Note Post-Debridement Measurements and Additional Note: Post-Debridement Measurements/Treatment - Nurse 1 - General Ulcer Assessment Start: 01/12/22 10:48 Freq: Status: Active Protocol: [email or web address].LOWEXT Activity Type Activity Date Activity User E-sign Co-sign Detail Recorded Client Recorded Date Recorded By Document 01/12/22 10:49 [facility] [id number] 01/12/22 11:23 BMF Document 01/15/22 13:52 KR [id number] 01/15/22 13:54 KR Document 01/19/22 11:32 AK [id number] 01/19/22 11:42 AK Document 01/26/22 10:26 DL [id number] 01/26/22 10:40 DL Document 02/02/22 10:20 AK [id number] 02/02/22 10:26 AK 01/12/22 01/15/22 01/19/22 10:49 13:52 11:32 WC - Today's Visit Information Type of service Initial Visit Nurse-only Follow-up Visit Visit (Physician/GOVERNMENT RELATIONS ANALYST ) Arrival Mode Ambulatory,Cane Wheelchair Ambulatory ,Walker Transfer Assistance Accompanied by DAUGHTER Patient Identification Verified (Name & Yes Yes Yes ) Patient Requires Transmission-Based No No Precautions Height and Weight Height 5 ft 10 in Weight 104.326 kg Weight in Pounds 230.0 lbs Weight Measurement Method Stated by Patient Body Mass Index (BMI) 33.0 33.0 33.0 BMI Classification Obese Obese Obese BSA - Cass 2.22 Vital Signs Temperature (97.8 F-99.1 F) 98.6 F 97.2 F L 97.2 F L Temperature Source Temporal Temporal Temporal Pulse Rate (60-100) 66 72 67 Pulse Location Monitor Monitor Monitor Respiratory Rate (12-18) 16 Respiratory rate source Observation Oxygen Delivery Method Room Air Blood Pressure (90/60-120/80) 188/96 H 170/89 H 187/95 H Blood Pressure Mean (mm Hg) 126 116 125 Source Monitor Monitor Monitor Position Sitting Sitting Blood Pressure Location Left Arm Right Arm Comment COUNSELED REGARDING BP. TAKES BP MEDS. History Since Last Visit- (Skip if this is Patient's initial visit) Have you changed medications since your No No last visit? Any new allergies or adverse reactions No No Had a fall/change in ADL's that may No No increase risk of falls Signs or symptoms of abuse and/or No No neglect since last visit Have you been in the hospital since your No No last visit? Has dressing in place as prescribed Yes Yes Has compression in place as prescribed Yes N/A Has offloadiing in place as prescribed N/A N/A Experienced any changes in pain level or No No management Left Footwear Regular Shoe Regular Shoe Right Footwear Regular Shoe Regular Shoe Pain Scale: 0-10 Numeric Is Patient Pain Free? Yes Yes No Lower Extremity Assessment/ Foot Assessment/ Toe Nail Assessment Right -Posterior Tibial Palpable No -Posterior Tibial Doppler Monophasic -Dorsalis Pedis Palpable Yes -Dorsalis Pedis Doppler Monophasic -Extremity Color Pale, Hyperpigmented, Hemosiderin -Hair Growth on Legs No -Hair Growth on Toes No -Temperature of Extremity Warm -Other Deformity No -Prior Foot Ulcer No -Charcot Joint No -Prior Amputation No -Thick Yes -Discolored Yes -Deformed No -Improper Length & Hygeine Yes Left -Posterior Tibial Palpable No -Posterior Tibial Doppler Monophasic -Dorsalis Pedis Palpable Yes -Dorsalis Pedis Doppler Multiphasic -Extremity Color Red,Pale, Hemosiderin -Hair Growth on Legs No -Hair Growth on Toes No -Temperature of Extremity Warm -Other Deformity No -Prior Foot Ulcer No -Charcot Joint No -Prior Amputation No -Thick Yes -Discolored Yes -Deformed No -Improper Length & Hygeine Yes Neuropathy Assessment Feet - Top Side and Bottom <Entered> (a) Communication Assessment Preferred language Kosovan 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 No Able to Read Yes Able to Write Yes Communication Tools None Right Hearing Abillity Normal Left Hearing Abillity Normal Visual Assistive Devices Glasses Teaching Assessment Preferences Verbal,Written, Audio/Visual, Demonstration Barriers to Learning None Readiness To Learn Excellent Willingness to Engage in Self Management High Activies Readiness to Engage in Self Management High Activities Anxiety Level Calm Cooperation Cooperative Perception Coherent Interest in Health Problem Asks Questions Education Importance Acknowledges Need Does Patient Smoke tobacco or other No substances Is Patient Diabetic No Functional Assessment Recent Decline in Ability to Perform Denies Any Declines Culture/Zoroastrianism/Asset Card Clerk Cultural/Zoroastrianism Needs that may affect No Treatment Plan Teaching: Wound Center *Welcome to the Wound Center -Person Taught Patient,Family -Teaching Method Discussion -Response to teaching Verbalize understanding Welcome to the Wound Care Center Kosovan 01/26/22 02/02/22 10:26 10:20 - Today's Visit Information Type of service Follow-up Visit Follow-up Visit (Physician/GOVERNMENT RELATIONS ANALYST (Physician/GOVERNMENT RELATIONS ANALYST ) ) Arrival Mode Ambulatory, Ambulatory, Walker Walker Transfer Assistance None Accompanied by Patient Identification Verified (Name & Yes Yes ) Patient Requires Transmission-Based No No Precautions Height and Weight Height Weight Weight in Pounds Weight Measurement Method Body Mass Index (BMI) 33.0 33.0 BMI Classification Obese Obese BSA - Cass Vital Signs Temperature (97.8 F-99.1 F) 99.2 F H 97.2 F L Temperature Source Temporal Temporal Pulse Rate (60-100) 66 87 Pulse Location Monitor Respiratory Rate (12-18) 20 H Respiratory rate source Observation Oxygen Delivery Method Blood Pressure (90/60-120/80) 178/93 H 147/62 H Blood Pressure Mean (mm Hg) 121 90 Source Monitor Monitor Position Blood Pressure Location Comment History Since Last Visit- (Skip if this is Patient's initial visit) Have you changed medications since your No No last visit? Any new allergies or adverse reactions No No Had a fall/change in ADL's that may No No increase risk of falls Signs or symptoms of abuse and/or No No neglect since last visit Have you been in the hospital since your No No last visit? Has dressing in place as prescribed Yes Yes Has compression in place as prescribed Yes Yes Has offloadiing in place as prescribed N/A N/A Experienced any changes in pain level or No No management Left Footwear Regular Shoe Regular Shoe Right Footwear Regular Shoe Regular Shoe Pain Scale: 0-10 Numeric Is Patient Pain Free? Yes Yes Lower Extremity Assessment/ Foot Assessment/ Toe Nail Assessment Right -Posterior Tibial Palpable -Posterior Tibial Doppler -Dorsalis Pedis Palpable -Dorsalis Pedis Doppler -Extremity Color -Hair Growth on Legs -Hair Growth on Toes -Temperature of Extremity -Other Deformity -Prior Foot Ulcer -Charcot Joint -Prior Amputation -Thick -Discolored -Deformed -Improper Length & Hygeine Left -Posterior Tibial Palpable -Posterior Tibial Doppler -Dorsalis Pedis Palpable -Dorsalis Pedis Doppler -Extremity Color -Hair Growth on Legs -Hair Growth on Toes -Temperature of Extremity -Other Deformity -Prior Foot Ulcer -Charcot Joint -Prior Amputation -Thick -Discolored -Deformed -Improper Length & Hygeine Neuropathy Assessment Feet - Top Side and Bottom Communication Assessment Preferred manager language Required Able to Read Able to Write Communication Tools Right Hearing Abillity Left Hearing Abillity Visual Assistive Devices Teaching Assessment Preferences Barriers to Learning Readiness To Learn Willingness to Engage in Self Management Activies Readiness to Engage in Self Management Activities Anxiety Level Cooperation Perception Interest in Health Problem Education Importance Does Patient Smoke tobacco or other substances Is Patient Diabetic Functional Assessment Recent Decline in Ability to Perform Culture/Zoroastrianism/Asset Card Clerk Cultural/Zoroastrianism Needs that may affect Treatment Plan Teaching: Wound Center *Welcome to the Wound Center -Person Taught -Teaching Method -Response to teaching Welcome to the Wound Care Center (a) 1 - + WC - Nurse 1 - General Ulcer Measurement Start: 01/12/22 10:48 Freq: Status: Active Protocol: Activity Type Activity Date Activity User E-sign Co-sign Detail Recorded Client Recorded Date Recorded By Document 01/12/22 10:49 [facility] [id number] 01/12/22 11:23 [facility] Document 01/19/22 11:32 SC [id number] 01/19/22 11:42 AK Document 01/26/22 10:26 DL [id number] 01/26/22 10:40 DL Document 02/02/22 10:20 AK [id number] 02/02/22 10:26 AK 01/12/22 01/19/22 01/26/22 10:49 11:32 10:26 Wound Center Nurse 1 #3- LLE CLUSTER -Combined with other wound No No -Current Size (cm) - Length 12 0.1 0.1 -Current Size (cm) - Width 10 0.1 0.1 -Current Size (cm) - Depth 0.1 0.1 0.1 -Total Square Cm 120 0.01 0.01 -Date of Last Picture (Recall this 01/12/22 field) -Photo Taken Yes No No -Epithelialization None Present -Tunneling No No -Undermining/Tunneling No No -Circular Undermining No No -Change in Wound Grade/Stage No -Exudate Amt Large None Present None Present -Exudate Type Serosanguineous -Wound Margin Distinct, Indistinct, Non Outline -Visible Attached -Granulation Amt Medium (34-66%) Large (67-100%) -Granulation Quality Red N/A [place] -Slough/Fibrin Yes No -Necrosis Amt Medium (34-66%) None Present (0 None Present (0 %) %) -Necrotic Tissue Type Eschar -Structure Exposed N/A N/A -Texture (Joellen-wound Skin Appearance) Assessed, No Abnormality, Excoriation, Scarring Assessed Scarring -Moisture (Joellen-wound Skin Appearance) Assessed, No Abnormality, Dry/Scaly Weeping Assessed -Color (Joellen-wound Skin Appearance) Assessed, No Abnormality, Hemosiderin Erythema, Assessed Staining Hemosiderin Staining -Temperature (Joellen-wound Skin No Abnormality No Abnormality No Abnormality Appearance) (Pt Warm) (Pt Warm) (Pt Warm) -Tenderness on Palpation (Joellen-wound No No No Skin Appearance) -Ulcer Cleansing Soap and Water Soap and Water Soap and Water -Foul Odor after Cleansing No No No -Anesthetic Used 4% Lidocaine 5% Lidocaine Solution Gel #2- R MED LE CLUSTER -Combined with other wound No No -Current Size (cm) - Length 10.5 0.1 0.1 -Current Size (cm) - Width 14.5 4 0.1 -Current Size (cm) - Depth 0.1 0.1 0.1 -Total Square Cm 152.25 0.4 0.01 -Date of Last Picture (Recall this 01/12/22 field) -Photo Taken Yes No No -Epithelialization None Present -Tunneling No No -Undermining/Tunneling No No -Circular Undermining No No -Change in Wound Grade/Stage No -Exudate Amt Large None Present None Present -Exudate Type Serosanguineous -Wound Margin Distinct, Distinct, Indistinct, Non Outline Outline -Visible Attached Attached -Granulation Amt Small (1-33%) None Present (0 Large (67-100%) %) -Granulation Quality Red N/A [place] -Slough/Fibrin Yes No -Necrosis Amt Large (67-100%) None Present (0 None Present (0 %) %) -Necrotic Tissue Type Eschar -Structure Exposed N/A N/A -Texture (Joellen-wound Skin Appearance) Assessed, No Abnormality, Scarring Scarring Assessed -Moisture (Joellen-wound Skin Appearance) Assessed, No Abnormality, Dry/Scaly Weeping Assessed -Color (Joellen-wound Skin Appearance) Assessed, No Abnormality, Hemosiderin Erythema, Assessed Staining Hemosiderin Staining -Temperature (Joellen-wound Skin No Abnormality No Abnormality No Abnormality Appearance) (Pt Warm) (Pt Warm) (Pt Warm) -Tenderness on Palpation (Joellen-wound Yes No No Skin Appearance) -Ulcer Cleansing Soap and Water Soap and Water Soap and Water -Foul Odor after Cleansing No No No -Anesthetic Used 4% Lidocaine 5% Lidocaine Solution Gel #1- R LAT LE -Combined with other wound No No -Current Size (cm) - Length 3.3 4 0.1 -Current Size (cm) - Width 3.3 3 0.1 -Current Size (cm) - Depth 0.1 0.1 0.1 -Total Square Cm 10.89 12 0.01 -Date of Last Picture (Recall this 01/12/22 field) -Photo Taken Yes No No -Epithelialization None Present None Present -Tunneling No No -Undermining/Tunneling No No -Circular Undermining No No -Exudate Amt Medium Medium Small -Exudate Type Serosanguineous Serosanguineous Serosanguineous -Wound Margin Distinct, Distinct, Distinct, Outline Outline Outline Attached Attached Attached -Granulation Amt Small (1-33%) None Present (0 Large (67-100%) %) -Granulation Quality Red [place],Red [place] -Slough/Fibrin Yes Yes -Necrosis Amt Large (67-100%) None Present (0 Small (1-33%) %) -Necrotic Tissue Type Adherent Slough Adherent Slough Adherent Slough -Structure Exposed N/A N/A -Texture (Joellen-wound Skin Appearance) Assessed, No Abnormality, Scarring Scarring Assessed -Moisture (Joellen-wound Skin Appearance) Assessed, No Abnormality, Dry/Scaly Weeping Assessed -Color (Joellen-wound Skin Appearance) Assessed, No Abnormality, Hemosiderin Erythema, Assessed Staining Hemosiderin Staining -Temperature (Joellen-wound Skin No Abnormality No Abnormality No Abnormality Appearance) (Pt Warm) (Pt Warm) (Pt Warm) -Tenderness on Palpation (Joellen-wound No No Skin Appearance) -Ulcer Cleansing Soap and Water Soap and Water Soap and Water -Foul Odor after Cleansing No No No -Anesthetic Used 4% Lidocaine 5% Lidocaine 4% Lidocaine Solution Gel Solution Lower Limb Edema Present Yes Right Calf (cm) 43 41 Right Ankle (cm) 21.8 21.7 Left Calf (cm) 39.4 37 Left Ankle (cm) 21.2 20.7 02/02/22 10:20 Wound Center Nurse 1 #3- LLE CLUSTER -Combined with other wound -Current Size (cm) - Length -Current Size (cm) - Width -Current Size (cm) - Depth -Total Square Cm -Date of Last Picture (Recall this field) -Photo Taken -Epithelialization -Tunneling -Undermining/Tunneling -Circular Undermining -Change in Wound Grade/Stage -Exudate Amt -Exudate Type -Wound Margin -Granulation Amt -Granulation Quality -Slough/Fibrin -Necrosis Amt -Necrotic Tissue Type -Structure Exposed -Texture (Joellen-wound Skin Appearance) -Moisture (Joellen-wound Skin Appearance) -Color (Joellen-wound Skin Appearance) -Temperature (Joellen-wound Skin Appearance) -Tenderness on Palpation (Joellen-wound Skin Appearance) -Ulcer Cleansing -Foul Odor after Cleansing -Anesthetic Used #2- R MED LE CLUSTER -Combined with other wound -Current Size (cm) - Length -Current Size (cm) - Width -Current Size (cm) - Depth -Total Square Cm -Date of Last Picture (Recall this field) -Photo Taken -Epithelialization -Tunneling -Undermining/Tunneling -Circular Undermining -Change in Wound Grade/Stage -Exudate Amt -Exudate Type -Wound Margin -Granulation Amt -Granulation Quality -Slough/Fibrin -Necrosis Amt -Necrotic Tissue Type -Structure Exposed -Texture (Joellen-wound Skin Appearance) -Moisture (Joellen-wound Skin Appearance) -Color (Joellen-wound Skin Appearance) -Temperature (Joellen-wound Skin Appearance) -Tenderness on Palpation (Joellen-wound Skin Appearance) -Ulcer Cleansing -Foul Odor after Cleansing -Anesthetic Used #1- R LAT LE -Combined with other wound No -Current Size (cm) - Length -Current Size (cm) - Width -Current Size (cm) - Depth -Total Square Cm -Date of Last Picture (Recall this field) -Photo Taken -Epithelialization -Tunneling -Undermining/Tunneling -Circular Undermining -Exudate Amt -Exudate Type -Wound Margin -Granulation Amt -Granulation Quality -Slough/Fibrin -Necrosis Amt -Necrotic Tissue Type -Structure Exposed -Texture (Joellen-wound Skin Appearance) -Moisture (Joellen-wound Skin Appearance) -Color (Joellen-wound Skin Appearance) -Temperature (Joellen-wound Skin Appearance) -Tenderness on Palpation (Joellen-wound Skin Appearance) -Ulcer Cleansing -Foul Odor after Cleansing -Anesthetic Used Lower Limb Edema Present Right Calf (cm) 37 Right Ankle (cm) 23 Left Calf (cm) 35 Left Ankle (cm) 21 02/02/22 10:21 Wound Center by BrianArnav struggled walking today even with walker. He is sweaty and I had im sit and take a break. PT denies being diabetic or dizzy Initialized on 02/02/22 10:21 - END OF NOTE WC - Nurse 2 - General Ulcer CM Notes Start: 01/12/22 10:48 Freq: Status: Active Protocol: Activity Type Activity Date Activity User E-sign Co-sign Detail Recorded Client Recorded Date Recorded By Document 01/12/22 11:58 [id number] 01/12/22 12:08 Document 01/19/22 11:43 [id number] 01/19/22 11:47 Document 01/26/22 10:59 [id number] 01/26/22 11:01 01/12/22 01/19/22 01/26/22 11:58 11:43 10:59 Wound Center Nurse 2 #3- LLE CLUSTER -Time 11:58 -Correct Patient Yes No No -Correct Side, Site, Position Yes No No -Correct Procedure Yes No No -Procedure Performed Yes No No -Type of Procedure Debridement -Clinical Debridement Subcutaneous -Tissue Removed Subcutaneous -Post Debridement (cm) - Length 12.0 0 -Post Debridement (cm) - Width 10.0 0 -Post Debridement (cm) - Depth 0.1 0 -Total Square (Post) (cm) 120.00 0 -Area of Debridement (cm) - Length 12.0 0 -Area of Debridement (cm) - Width 10.0 0 -Total Square (Area) (cm) 120.00 0 -Tunneling No -Undermining/Tunneling No -Circular Undermining No -Wound/Ulcer Outcome Not Healed Not Healed Healed- Epithelialized -Ulcer Cleansing Rinsed/ Irrigated with Saline -Foul Odor after Cleansing No -Bioengineered Tissue No -Bleeding Controlled with Pressure -Treatment Response Procedure Tolerated Well -Offloading No -Debridement - Subq, 1st 20sq cm Yes -Debridement, SubQ, ea addt'l 20sq cm 14 or part thereof #2- R MED LE CLUSTER -Time 11:59 -Correct Patient Yes No No -Correct Side, Site, Position Yes No No -Correct Procedure Yes No No -Procedure Performed Yes No No -Type of Procedure Debridement -Clinical Debridement Subcutaneous -Tissue Removed Subcutaneous -Post Debridement (cm) - Length 10.6 0 -Post Debridement (cm) - Width 15.0 0 -Post Debridement (cm) - Depth 0.1 0 -Total Square (Post) (cm) 159.00 0 -Area of Debridement (cm) - Length 10.6 0 -Area of Debridement (cm) - Width 15.0 0 -Total Square (Area) (cm) 159.00 0 -Tunneling No -Undermining/Tunneling No -Circular Undermining No -Wound/Ulcer Outcome Not Healed Not Healed Healed- Epithelialized -Ulcer Cleansing Rinsed/ Irrigated with Saline -Foul Odor after Cleansing No -Bioengineered Tissue No -Bleeding Controlled with Pressure -Treatment Response Procedure Tolerated Well -Offloading No -Debridement - Subq, 1st 20sq cm No #1- R LAT LE -Time 11:59 11:44 -Correct Patient Yes Yes Yes -Correct Side, Site, Position Yes Yes Yes -Correct Procedure Yes Yes Yes -Procedure Performed Yes Yes Yes -Type of Procedure Debridement Debridement Debridement -Clinical Debridement Subcutaneous Subcutaneous Subcutaneous -Tissue Removed Subcutaneous Subcutaneous Subcutaneous -Post Debridement (cm) - Length 3.4 3.0 0.5 -Post Debridement (cm) - Width 3.4 2.0 0.5 -Post Debridement (cm) - Depth 0.1 0.1 0.1 -Total Square (Post) (cm) 11.56 6.00 0.25 -Area of Debridement (cm) - Length 3.4 3.0 0.5 -Area of Debridement (cm) - Width 3.4 2.0 0.5 -Total Square (Area) (cm) 11.56 6.00 0.25 -Tunneling No No No -Undermining/Tunneling No No No -Circular Undermining No No No -Wound/Ulcer Outcome Not Healed Not Healed Not Healed -Ulcer Cleansing Rinsed/ Rinsed/ Rinsed/ Irrigated with Irrigated with Irrigated with Saline Saline Saline -Foul Odor after Cleansing No No No -Bioengineered Tissue No No No -Bleeding Controlled with Pressure Pressure Pressure -Treatment Response Procedure Procedure Procedure Tolerated Well Tolerated Well Tolerated Well -Offloading No No No -Debridement - Subq, 1st 20sq cm No Yes Yes Pain Scale: 0-10 Numeric Is Patient Pain Free? Yes Yes Yes WC - Nurse 3 - General Ulcer D/C NN Start: 01/12/22 10:48 Freq: Status: Active Protocol: Activity Type Activity Date Activity User E-sign Co-sign Detail Recorded Client Recorded Date Recorded By Document 01/12/22 12:08 MW [id number] 01/12/22 12:10 MW Document 01/15/22 13:52 KR [id number] 01/15/22 13:54 KR Document 01/19/22 11:54 AK [id number] 01/19/22 11:55 AK Document 01/25/22 06:59 [address] [id number] 01/25/22 07:00 PL Document 01/26/22 11:03 DL [id number] 01/26/22 11:06 DL Edit Result 01/26/22 11:03 DL (1) [id number] 01/26/22 11:08 DL (1) Notes: => dressings applied today per Madeleine Cook 01/12/22 01/15/22 01/19/22 12:08 13:52 11:54 Wound Care Nurse 3 #3- LLE CLUSTER -Ulcer Cleansing Rinsed/ Soap and Water Soap and Water Irrigated with Saline -Foul Odor after Cleansing No No -Negative Pressure Wound Therapy N/A N/A -Primary Dressing Applied Aquacel AG 4x4 Aquacel AG 2x2 -Primary Dressing Covered/Secured with Dry Gauze, Secured with Tape -Aquacel AG 4x4 1 -Aquacel AG 2x2 1 #2- R MED LE CLUSTER -Ulcer Cleansing Rinsed/ Soap and Water Soap and Water Irrigated with Saline -Foul Odor after Cleansing No No -Negative Pressure Wound Therapy N/A N/A -Primary Dressing Applied Aquacel AG 2x2 -Other Dressing aquacel AG -Primary Dressing Covered/Secured with Dry Gauze -Aquacel AG 2x2 1 #1- R LAT LE -Ulcer Cleansing Rinsed/ Soap and Water Irrigated with Saline -Foul Odor after Cleansing No No -Negative Pressure Wound Therapy N/A N/A -Other Dressing Aquacel AG -Primary Dressing Covered/Secured with Dry Gauze Bilateral LE -Lotion applied to leg before No No compression wrap -Multi-Layered Wrap Application Unna Boot - Unna Boot - Unna Boot - Bilateral ($) Bilateral ($) Bilateral ($) -Unna Boots (Bilat) ($) 2 2 2 Treatment Response Procedure Tolerated Well Vital Signs Temperature (97.8 F-99.1 F) 97.2 F L Temperature Source Temporal Pulse Rate (60-100) 72 Pulse Location Monitor Blood Pressure (90/60-120/80) 170/89 H Blood Pressure Mean (mm Hg) 116 Source Monitor Position Sitting Blood Pressure Location Right Arm Pain Scale: 0-10 Numeric Is Patient Pain Free? Yes Yes Yes Teaching: Wound Center Dressing Your Wound -Person Taught Patient,Family -Teaching Method Discussion, Demonstration -Response to teaching Verbalize understanding WC - Visit Discharge Discharge Condition Stable Stable Stable Ambulatory Status Ambulatory Wheelchair Ambulatory Transportation Private Auto Private Auto Private Auto Accompanied by daughter daughter son Medication Reconcilliation completed & No Yes provided to patient/care provider Clinical Summary of Care Provided Yes Yes Notes: 01/25/22 01/26/22 06:59 11:03 Wound Care Nurse 3 #3- LLE CLUSTER -Ulcer Cleansing -Foul Odor after Cleansing -Negative Pressure Wound Therapy -Primary Dressing Applied -Primary Dressing Covered/Secured with -Aquacel AG 4x4 -Aquacel AG 2x2 #2- R MED LE CLUSTER -Ulcer Cleansing -Foul Odor after Cleansing -Negative Pressure Wound Therapy -Primary Dressing Applied -Other Dressing -Primary Dressing Covered/Secured with -Aquacel AG 2x2 #1- R LAT LE -Ulcer Cleansing Rinsed/ Irrigated with Saline -Foul Odor after Cleansing No -Negative Pressure Wound Therapy -Other Dressing -Primary Dressing Covered/Secured with Bilateral LE -Lotion applied to leg before compression wrap -Multi-Layered Wrap Application Unna Boot - Unna Boot - Bilateral ($) Bilateral ($) -Unna Boots (Bilat) ($) 2 2 Treatment Response Vital Signs Temperature (97.8 F-99.1 F) Temperature Source Pulse Rate (60-100) Pulse Location Blood Pressure (90/60-120/80) Blood Pressure Mean (mm Hg) Source Position Blood Pressure Location Pain Scale: 0-10 Numeric Is Patient Pain Free? Yes Yes Teaching: Wound Center Dressing Your Wound -Person Taught -Teaching Method -Response to teaching WC - Visit Discharge Discharge Condition Stable Stable Ambulatory Status Walker Ambulatory, Walker Transportation Private Auto Private Auto Accompanied by Medication Reconcilliation completed & provided to patient/care provider Clinical Summary of Care Provided Notes: dressings applied today per Madeleine Cook Assessment/Plan Assessment/Plan (1) Venous insufficiency (chronic) (peripheral): CODE(S): I87.2 - Venous insufficiency (chronic) (peripheral) PLAN: Patient examined evaluated, all findings discussed with patient in detail. All wounds healed Awaiting new arterial and venous studies. This time recommend compression elevation and exercise for edema management. Prescription for compression stockings dispensed 20 to 30 mm graded compression knee-high. Patient will follow up in a month at which time we will discuss his vascular study results and perform nail care. (2) Non-pressure chronic ulcer of right calf with fat layer exposed: CODE(S): L97.212 - Non-pressure chronic ulcer of right calf with fat layer exposed (3) Non-pressure chronic ulcer of left calf with fat layer exposed: CODE(S): L97.222 - Non-pressure chronic ulcer of left calf with fat layer exposed
== END 2022-02-02 14:05 | disposition home or self-care (01) ==
LOC: WC 10:15
PROVIDERS: PCP Preventive Medicine Occupational Medicine; Visit Provider Podiatrist
DX: I87.2 Venous insufficiency (chronic) (peripheral) (principal); L97.212 Non-pressure chronic ulcer of right calf with fat layer exposed; L97.222 Non-pressure chronic ulcer of left calf with fat layer exposed; G62.9 Polyneuropathy, unspecified; R60.0 Localized edema
CPT/HCPCS: 11042; 11045; 29580; 99203; 99213; G0463

== ENCOUNTER 2022-03-01 14:07 | Emergency (ER) | payer MEDICARE, OTHER, SELFPAY ==
[2022-03-01 14:08] VITALS: BP 208/129; PULSE 70; RESP 15; TEMP 36.4; O2SAT 98; BMI 34.4
--- NOTE | 2022-03-01 14:45 | EDS_ITS ---
HPI History of Present Illness Chief Complaint: Lower Extremity Injury Informant: patient and family Narrative Narrative: Patient presents with positive DVT study. He has been having soreness in his left and right leg for a while. It seemed like maybe the left was little more sore. No swelling. No chest pain or trouble breathing. He saw his physician today at about 1:00. They ordered an outpatient ultrasound which did show an acute DVT in the left gastroc vein. Patient reports a history of a DVT in his right leg somewhere in the past and he might of taken Coumadin. The details are unknown on this. I also note the patient's blood pressure is extremely high. He states he has Lasix but he does not take it because it makes him urinate too much. When I look at his med list I also find out that he was on Avalide and lisinopril. He states he thinks he might of been on those. He might have Avalide left but he might not. He does not think he has lisinopril. His son verifies that he really does not take his medicines as prescribed. This brings into question the value of starting Eliquis. It does not sound like the patient has a history of taking too much meds. He just does not take them as he is supposed to as and he misses doses. I do not have any blood work on this patient that would allow me to start the appropriate med. I did discuss case with Dr. Pitt. He does not think they have any blood work in the office but he will contact them to verify. [facility] Home Medications furosemide 80 mg tablet 40 mg PO DAILY 04/09/13 [History Last Taken Unknown] irbesartan 150 mg-hydrochlorothiazide 12.5 mg tablet (Avalide) 1 tab PO DAILY 04/09/13 [History Last Taken Unknown] lisinopril 20 mg tablet 20 mg PO DAILY 04/09/13 [History Last Taken Unknown] lysine 500 mg capsule (L-Lysine) 500 mg PO DAILY 04/09/13 [History Last Taken Unknown] naproxen sodium 220 mg tablet (Aleve) 220 mg PO Q8 04/09/13 [History Last Taken Unknown] Ginko Biloba 120 mg OTHER DAILY 01/12/22 [History Last Taken Unknown] Олег's wort 300 mg capsule 300 mg PO DAILY PRN depression 01/12/22 [History Last Taken Unknown] acetaminophen 500 mg tablet (Acetaminophen Extra Strength) 500 mg PO Q6H PRN Pain 01/12/22 [History Last Taken Unknown] chlorpheniramine-acetaminophen 2 mg-325 mg tablet (Coricidin HBP Cold and Flu) 1 tab PO Q6H PRN Cold Symptoms 01/12/22 [History Last Taken Unknown] coenzyme Q10 100 mg capsule (Co Q-10) 100 mg PO DAILY 01/12/22 [History Last Taken Unknown] dextromethorphan-guaifenesin 30 mg-600 mg tablet extended [id number] hr (Mucinex DM) 1 tab PO Q12H PRN Cold Symptoms 01/12/22 [History Last Taken Unknown] hvgaldcxtfj-iee-xceqfaekr-vitC capsule (Glucosamine Complex-MSM capsule) 2 cap PO DAILY 01/12/22 [History Last Taken Unknown] magnesium 500 tab PO DAILY 01/12/22 [History Last Taken Unknown] vitamin A-vitamin C-vit E-min tablet 1 tab PO DAILY 01/12/22 [History Last Taken Unknown] zinc 50 mg tablet 50 mg PO DAILY 01/12/22 [History Last Taken Unknown] apixaban 5 mg tablet (Eliquis) 5 mg PO BID #74 tabs 03/01/22 [Rx Last Taken Unknown] lisinopril 20 mg tablet 20 mg PO DAILY #30 tabs 03/01/22 [Rx Last Taken Unknown] Allergy/AdvReac Type Severity Reaction Status Date / Time acetaminophen [From Vicodin] Allergy Other Verified 03/01/22 14:19 hydrocodone [From Vicodin] Allergy Other Verified 03/01/22 14:19 propoxyphene Allergy Swelling Verified 03/01/22 14:19 Social History Smoking Status: Never smoker ROS ROS ED Constitutional Constitutional ED: Denies chills or fever(s) ENT ENT ED: Denies rhinorrhea or sore throat Cardiovascular Cardiovascular: Denies chest pain, palpitations or racing heartbeat Respiratory/Chest Respiratory/Chest: Denies cough, dyspnea, dyspnea on exertion or sputum Gastrointestinal Gastrointestinal: Denies melena, nausea or vomiting Genitourinary Genitourinary ED: Denies hematuria Integumentary Denies Abrasions or rash Neurologic Neurologic: Denies headache(s) Psychiatric Psychiatric: Denies anxiety or depression Endocrine Endocrinology: Denies polyuria Hematologic/Lymphatic Hematologic/Lymphatic: Denies anemia, easy bleeding or easy bruising EXAM Physical Exam Const Vital Signs: 03/01/22 14:08 03/01/22 15:17 Temperature 97.6 F L Temperature Source Temporal Pulse Rate 70 Respiratory Rate 15 Blood Pressure 208/129 H 167/92 H Blood Pressure Mean 155 117 Pulse Ox 98 Oxygen Delivery Method Room Air Positive well nourished and obese General Appearance ED: NAD; Negative for cyanotic or diaphoretic Nutritional Appearance: obese HEENT Reports moist mucous membranes Eyes General Eye ED: Negative for scleral icterus Neck no JVD Chest Wall inspection of chest normal Resp normal respiratory effort Auscultation: Negative for rales, rhonchi or wheezes Cardio regular rhythm and no murmurs GI normal to inspection, nondistended, normoactive bowel sounds and non-tender Palpation: soft Back/Spine no CVA tenderness Extremity Extremity Narrative: Both extremities have some mild chronic venous stasis changes. Very minimal edema. No definitive cord is palpable. No notable calf tenderness. No distended veins Neuro oriented x3 Neuro Narrative: Patient is oriented x3. He is a bit of a bad informant for past medical history though. Psych mental status grossly normal Skin no rashes or lesions noted MDM MDM MDM Narrative Medical decision making narrative: Because we have no access to any old labs we did check today. His CBC coag and electrolytes are overall relatively normal. Carbon dioxide is fine but he is awake alert and appropriate with normal sats. Creatinine is normal. Blood pressure was rechecked at 167/92. Although this is significantly elevated I do not think this puts him at undue risk for Eliquis. I will rewrite for his lisinopril that he does not have at home. We will start him on Eliquis. 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 We discussed cautions of bleeding. We discussed cautions and eval if he hits his head. Lab Data Labs: Laboratory Results - last 24 hr 03/01/22 03/01/22 03/01/22 15:07 15:07 15:07 WBC 8.1 RBC 5.08 Hgb 15.7 Hct 47.2 MCV 92.9 MCH 30.9 MCHC 33.3 RDW Std Deviation 45.2 H RDW Coeff of Kostas 13.2 Plt Count 252 MPV 10.9 Immature Gran % (Auto) 0.500 Neut % (Auto) 66.5 Lymph % (Auto) 17.6 L [place] % (Auto) 10.9 H Eos % (Auto) 3.3 Baso % (Auto) 1.2 H Absolute Neuts (auto) 5.4 Absolute Lymphs (auto) 1.43 Nucleated RBC % 0 PT 14.1 INR 1.1 Sodium 143 Potassium 4.3 Chloride 108 H Carbon Dioxide 33.0 H Anion Gap 2 L BUN 20 H Creatinine 0.92 Estim Creat Clear Calc 72.74 Est GFR (MDRD) Af Amer 103 Est GFR (MDRD) Non-Af 85 BUN/Creatinine Ratio 21.8 H Glucose 99 Calcium 9.0 Discharge Plan Triage Chief Complaint: Lower Extremity Injury ED Provider: Kang Whitman Dx/Rx/DC Orders Clinical Impression: Left leg DVT Instructions: ED Deep Vein Thrombosis (DVT) Prescriptions: New lisinopril 20 mg tablet 20 mg PO DAILY Qty: 30 0RF Eliquis 5 mg tablet 5 mg PO BID Qty: 74 0RF Rx Instructions: 10 mg twice a day for the first week. Then 5 mg twice a day. No Action L-Lysine 500 MG capsule 500 mg PO DAILY irbesartan-hydrochlorothiazide [Avalide] 1 TAB tablet 1 tab PO DAILY lisinopril 20 MG tablet 20 mg PO DAILY furosemide 80 MG tablet 40 mg PO DAILY naproxen sodium [Aleve] 220 MG tablet 220 mg PO Q8 acetaminophen [Acetaminophen Extra Strength] 500 mg Tablet 500 mg PO Q6H PRN (Reason: Pain) zinc 50 mg Tablet 50 mg PO DAILY Mucinex DM 30-600 mg Tablet Extended Release 12 Hr 1 tab PO Q12H PRN (Reason: Cold Symptoms) Coricidin HBP Cold and Flu 2-325 mg Tablet 1 tab PO Q6H PRN (Reason: Cold Symptoms) [place]'s wort 300 mg Capsule 300 mg PO DAILY PRN (Reason: depression) Ocuvite Tablet 1 tab PO DAILY coenzyme Q10 [Co Q-10] 100 mg Capsule 100 mg PO DAILY Glucosamine Complex-MSM Capsule 2 cap PO DAILY magnesium Tablet 500 tab PO DAILY Ginko Biloba 120 mg OTHER DAILY Primary Care Provider: Dionicio Genao Referrals: Birgit,Dionicio, DO [Primary Care Provider] - As soon as possible (Follow-up closely. You will need repeat ultrasounds to tucker changes.) Disposition Disposition: Home, Self Care
[2022-03-01 15:17] VITALS: BP 167/92
[2022-03-01 15:17] LABS: Absolute Lymphocyte Count 1.43 X10^3/uL (0.83-4.51); Absolute Neutrophil Count 5.4 X10^3/uL (2.0-7.7); Basophil% 1.2 % (0-1); Eosinophil# 0.27 X10^3/uL; Eosinophils% 3.3 % (0-5); Hematocrit 47.2 % (40-54); Hemoglobin 15.7 g/dL (13.0-16.5); Lymphocyte # 1.43 X10^3/ul (0.83-4.51); Lymphocyte % 17.6 % (19-41); Mean Corp Hgb Conc 33.3 g/dL (32-36); Mean Corpuscular Hgb 30.9 pg (27.0-32.0); Mean Corpuscular Volume 92.9 fL (80-94); Mean Platelet Vol. 10.9 fl (6.2-12.0); Monocyte# 0.89 X10^3/uL; Monocyte% 10.9 % (0-10); NRBC Flagged by Analyzer 0 % (0-5); Neutrophil % 66.5 % (47-70); Platelet Count 252 K/mm3 (150-450); RBC Distribution Width CV 13.2 % (11.6-14.6); RBC Distribution Width SD 45.2 fl (35.1-43.9); Red Blood Count 5.08 M/mm3 (4.6-6.2); White Blood Count 8.1 K/mm3 (4.4-11.0)
[2022-03-01 15:24] LABS: International Normalized Ratio 1.1; Prothrombin Time (Protime)PT. 14.1 SECONDS (11.7-14.9)
[2022-03-01 15:28] LABS: Anion Gap 2 (5-15); BUN 20 mg/dL (7-18); BUN/Creat Ratio 21.8 RATIO (10-20); Chloride 108 mmol/L (98-107); Creatinine, Serum 0.92 mg/dL (0.70-1.30); EST Glomerular Filtration Rate 85 mL/min (>60); Est Glom Filt Rate - Afr Amer 103 mL/min (>60); Estimated Creatinine Clearance 72.74 ml/min; Glucose 99 mg/dL (74-106); Potassium 4.3 mmol/L (3.5-5.1); Sodium Level 143 mmol/L (136-145)
[2022-03-01] MEDS: APIXABAN 5 MG TABLET 10 MG PO (16:15)
== END 2022-03-01 16:27 | disposition home or self-care (01) ==
PROVIDERS: Emergency Provider Emergency Medicine; PCP Preventive Medicine Occupational Medicine; Visit Provider Emergency Medicine
DX: I82.462 Acute embolism and thrombosis of left calf muscular vein (principal); L97.912 Non-pressure chronic ulcer of unspecified part of right lower leg with fat layer exposed; L97.922 Non-pressure chronic ulcer of unspecified part of left lower leg with fat layer exposed; I87.2 Venous insufficiency (chronic) (peripheral); E66.9 Obesity, unspecified
CPT/HCPCS: 80048; 85025; 85610; 93970; 99283; A4216

== ENCOUNTER → 2022-03-01 | Outpatient (CLI) | payer MEDICARE, OTHER, SELFPAY ==
--- NOTE | 2022-03-01 12:57 | VDLE_ITS ---
Reason For Study: Ulcer RIGHT LEFT CFV is compressible, spontaneous, phasic, CFV is compressible, spontaneous, phasic, competent and demonstrates normal competent, and demonstrates normal augmentation. augmentation. FV is compressible, spontaneous, phasic, FV is compressible, spontaneous, phasic, competent and demonstrates normal competent and demonstrates normal augmentation. augmentation. POP V is compressible, spontaneous, phasic, POP V is compressible, spontaneous, phasic, competent and demonstrates normal competent and demonstrates normal augmentation. augmentation. T/P Trunk is compressible. T/P Trunk is compressible. PTV is compressible. PTV is compressible. RT PerV is compressible. LT PerV is compressible. SFJ is competent and measures 0.89 x 0.90 cm. Acute deep vein thrombosis is noted in the GSV proximal thigh measures 0.53 x 0.57 cm. left Gastroc vein. GSV at knee measures 0.44 x 0.44 cm. SFJ is competent and measures 0.71 x 0.80 GSV is competent throughout. cm. SSV proximal calf is competent and measures GSV proximal thigh measures 0.51 x 0.53 cm. 0.31 x 0.32 cm. GSV at knee measures 0.39 x 0.33 cm. Nonvascularized structure noted in the right GSV is competent throughout. popliteal structure that measures 1.26 x 2.86 ASV mid calf is INCOMPETENT for greater than cm. 0.5 seconds and measures 0.32 x 0.34 cm. Procedure SSV at junction is competent and measures This is a venous duplex using B-mode, color 0.14 x 0.15 cm. flow and spectral Doppler. Exam performed in department. Patient was scanned in supine position during reflux assessment. A preliminary report was called and/or faxed to Mirlande ARROYO @[facility]. Per Dr. Zurita, take patient to ED for treatment. Did not do LEAS test due to DVT. VL/Venous Duplex US - Kiran Extrem Interpretation Summary Acute deep vein thrombosis is noted in the left gastrocnemius vein. The remaind er of the left lower extremity deep venous system is patent and compressible. Deep veins of the righ t lower extremity are patent and compressible segmentally. There is no evidence of right lower extrem ity deep vein thrombosis. Valvular competence appears intact within the proximal deep venous systems bilaterally. The great saphenous veins appear bilaterally patent and compressible segmentall y. Sapheno-femoral junctions are bilaterally competent . Valvular competence appears to be intact segmentally within the great saphenous veins bilaterally. Small saphenous veins are patent and com petent bilaterally. An accessory saphenous vein in the left mid-calf is incompetent. A non-vascular structure is noted in the right popliteal space, measuring 1.26 cm x 2.86 cm. This probably repres ents a popliteal cyst. Clinical correlation is advised. Ordering Physician: Reed Zurita Referring Physician: Dionicio Genao Performed By: Mona Souza RVT
== END | disposition home or self-care (01) ==
LOC: CVS 12:55
PROVIDERS: PCP Preventive Medicine Occupational Medicine; Referring Provider Podiatrist; Visit Provider Podiatrist
DX: I82.462 Acute embolism and thrombosis of left calf muscular vein (principal); L97.912 Non-pressure chronic ulcer of unspecified part of right lower leg with fat layer exposed; L97.922 Non-pressure chronic ulcer of unspecified part of left lower leg with fat layer exposed; I87.2 Venous insufficiency (chronic) (peripheral)
CPT/HCPCS: 93970

== ENCOUNTER → 2024-09-13 | Outpatient (REF) | payer MEDICARE, SELFPAY ==
[2024-09-13 07:05] LABS: Bacteria 0 SEEN /hpf (None Seen); Mucous, Urine 0 SEEN /hpf (<or=2+); Squamous Epithelial Cells - UA 0 SEEN /hpf (0-5); White Blood Cells 0 SEEN /hpf (0-5)
[2024-09-13 07:57] LABS: Color, Urine Yellow (Yellow); Glucose, Dipstick Normal (Normal); Ketone-Dipstick Negative (Negative); Leukocyte Esterase-Dipstick Negative /ul (Negative); Nitrite-Dipstick Negative (Negative); Occult Blood-Urine Negative /ul (Negative); Protein-Dipstick Negative (Negative); Urine Bilirubin Dipstick Negative (Negative); Urine Clarity Clear (Clear); Urine Urobilinogen Normal (Normal); Urine pH 6.5 (5.0 - 8.0)
[2024-09-13 14:22] LABS: Red Blood Cells-Urine 0 SEEN /hpf (0-5)
== END ==
LOC: OLS.ACH 03:00
PROVIDERS: PCP Preventive Medicine Occupational Medicine; Visit Provider Internal Medicine
DX: R35.89 Other polyuria (principal)
CPT/HCPCS: 81001; 87086

== ENCOUNTER 2024-10-22 22:47 | Emergency (ER) | payer MEDICARE, OTHER, SELFPAY ==
[2024-10-22 22:48] VITALS: BP 136/79; PULSE 72; RESP 16; TEMP 36.7; O2SAT 99; BMI 35.9
--- NOTE | 2024-10-22 23:04 | CT_ITS ---
PROCEDURE: BRAIN/HEAD WITHOUT CONTRAST 10/22/2024 REASON FOR EXAM: CHANGE IN MENTAL STATUS TECHNIQUE: Head CT without intravenous contrast. Coronal and Sagittal reconstruction series were provided. One or more dose reduction techniques were used (e.g., Automated exposure control, adjustment of the mA and/or kV according to patient size, use of iterative reconstruction technique. COMPARISON: None FINDINGS: No acute intracranial hemorrhage, mass, mass effect, midline shift or pathologic extra-axial fluid collection. Mild parenchymal atrophy with commensurate increase in CSF containing spaces. Patchy white matter hypodensities, patient demographics favor chronic microvascular ischemic changes. Paranasal sinuses and mastoid air cells are clear. The calvarium is grossly intact. CT/Brain/Head without Contrast IMPRESSION: No acute intracranial abnormality. Chronic microvascular ischemia and involutional changes. [facility]
--- NOTE | 2024-10-22 23:04 | EKG12_ITS ---
Test Reason : DYSRHYTHMIA Blood Pressure : */* mmHG Vent. Rate : 58 BPM Atrial Rate : 58 BPM P-R Int : 192 ms QRS Dur : 134 ms QT Int : 462 ms P-R-T Axes : -4 -3 6 degrees QTcB Int : 453 ms Sinus bradycardia with Premature atrial complexes Right bundle branch block Minimal voltage criteria for LVH, may be normal variant ( R in aVL ) Abnormal ECG Confirmed by Jean Brannon ([id number]), news video editor AUBREY TROTTER ([id number]) on 10/23/2024 11:32:36 AM Referred By: Confirmed By: Jean Brannon
--- NOTE | 2024-10-22 23:38 | ED.VIS.CHEST ---
HPI History of Present Illness Chief Complaint: Mental Health Narrative Narrative: Patient is a 79-year-old male with past medical history dementia, chronic kidney disease, hypertension, anxiety, COPD, Parkinson disease on Eliquis who presents to the emergency department from his facility with concern of increasing aggressive behaviors over the last few days. According to staff the nursing facility send admission as he has been going in and out of patient's rooms and been acting aggressively towards staff. They state that this is out of his norm. They note that he has a DNR comfort care patient. They felt that he needed psychiatric hospitalization therefore he sent him here for further evaluation management. [facility] Medical History Dementia Chronic kidney disease HTN (hypertension) Hyperlipidemia Anxiety COPD (chronic obstructive pulmonary disease) Parkinson disease Home Medications ?Medication ?Instructions ?Recorded ?Last Taken ?Type furosemide 80 mg tablet 40 mg PO DAILY 04/09/13 Unknown History lysine 500 mg capsule (L-Lysine) 500 mg PO DAILY 04/09/13 Unknown History aspirin 81 mg capsule 81 mg PO DAILY 10/22/24 Unknown History carbidopa 25 mg-levodopa 100 mg 1 tab PO TID 10/22/24 Unknown History tablet cimetidine 200 mg tablet 200 mg PO BID 10/22/24 Unknown History furosemide 40 mg tablet 40 mg PO DAILY PRN edema 10/22/24 Unknown History haloperidol lactate 5 mg/mL 2.5 mg .Route Q6H PRN agitation 10/22/24 Unknown History injection syringe hydroxyzine pamoate 25 mg capsule 25 mg PO BID 10/22/24 Unknown History loratadine 10 mg tablet 10 mg PO DAILY 10/22/24 Unknown History (Allerclear) losartan 50 mg-hydrochlorothiazide 1 tab PO BID 10/22/24 Unknown History 12.5 mg tablet melatonin 3 mg capsule 3 mg PO DAILY 10/22/24 Unknown History meloxicam 7.5 mg tablet 7.5 mg PO DAILY PRN pain 10/22/24 Unknown History memantine 5 mg tablet 5 mg PO QHS 10/22/24 Unknown History tamsulosin 0.4 mg capsule 0.4 mg PO DAILY 10/22/24 Unknown History Allergy/AdvReac Type Severity Reaction Status Date / Time acetaminophen (From Vicodin) Allergy Other Verified 03/01/22 14:19 hydrocodone (From Vicodin) Allergy Other Verified 03/01/22 14:19 propoxyphene Allergy Swelling Verified 03/01/22 14:19 Social History Smoking Status: Never smoker ROS ROS ED ROS Narrative Constitutional: Denies any fevers, chills, headaches, lightness, dizziness Eyes: Denies change in vision double vision blurry vision Cardiovascular: Denies chest pain or palpitations Respiratory: Denies coughing wheezing shortness of breath Abdomen: Denies nausea vomit diarrhea : Denies urinary symptoms Neurological: Denies numbness, weakness, tingling Musculoskeletal: Patient self states that he is had multiple falls Psychiatric: Denies suicidal or homicidal ideations. Skin: Denies any rashes or lesions that are new EXAM Physical Exam Narrative Exam Narrative: General: Patient lying in bed rest comfortably not appear to be in acute distress Head: Atraumatic, normocephalic Eyes: PERRL bilaterally, EOMI bilateral, no conjunctival injection noted Neck: Soft, supple, trachea midline Cardiovascular: Regular rate and rhythm no murmurs gallops rubs noted Respiratory: Clear to auscultation bilaterally Abdomen: Soft, nondistended, tender to palpation Extremities: Patient moving all extremities, radial pulses +2/4 in the bilateral upper extremities Neurological: Patient knew that he was at [facility] the year is 2024. Patient does not recall the events of him being aggressive towards other individuals Skin: Warm, dry, patient does have chronic skin changes noted to the lower extremities with erythema to the right lower extremity however this seems to improve after lifting his leg in the air and allowing for venous return Const Vital Signs: 10/22/24 22:48 10/23/24 00:47 Temperature 98.1 F Temperature Source Oral Pulse Rate 72 70 Respiratory Rate 16 18 Blood Pressure 136/79 H Blood Pressure Mean 98 Pulse Ox 99 97 Oxygen Delivery Method Room Air Room Air MDM MDM MDM Narrative Medical decision making narrative: Patient is a 79-year-old male who presented to the emergency department with concern for increased aggressive behaviors. The differential diagnose includes but not limited to intracranial hemorrhage, urinary tract infection. Once workup is obtained reviewed he will be reevaluated. Once again patient is DNR comfort care. Patient CBC reviewed and showed no evidence of leukocytosis white blood count 8.6, hemolyzed 14.8, plate count was 93 of 6. Patient sodium is 139, potassium normal 3.6, creatinine normal 0.89. Patient is feeling of fever 2016 respectively. Patient urinalysis reviewed showed no evidence of infection and drug screen was negative. Alcohol level less than 10.1. Patient CT head and brain without contrast showed no acute intracranial abnormality has chronic microvascular ischemia and involutional changes noted. Patient is EKG reviewed and showed sinus bradycardia with PACs noted with a rate of 58 bpm. Patient was evaluated by the crisis team who states that the patient can go back to the facility and continue his current medications. Patient has been cooperative here in the emergency department. Patient was notified that he will be going back to the facility in the stable condition all course concerns answered at bedside. Lab Data Labs: Laboratory Results - last 24 hr 10/22/24 10/23/24 23:59 01:00 WBC 8.6 RBC 4.93 Hgb 14.8 Hct 44.0 MCV 89.2 MCH 30.0 MCHC 33.6 RDW Std Deviation 45.6 H RDW Coeff of Kostas 14.0 Plt Count 306 MPV 10.5 Immature Gran % (Auto) 0.500 Neut % (Auto) 57.0 Lymph % (Auto) 18.6 L [place] % (Auto) 13.7 H Eos % (Auto) 8.8 H Baso % (Auto) 1.4 H Absolute Neuts (auto) 4.9 Absolute Lymphs (auto) 1.60 Nucleated RBC % 0 Sodium 139 Potassium 3.6 Chloride 103 Carbon Dioxide 26.4 Anion Gap 10 BUN 17 Creatinine 0.89 Estim Creat Clear Calc 87.74 Est GFR (MDRD) Non-Af 88 BUN/Creatinine Ratio 18.7 Glucose 99 Calcium 8.4 Total Bilirubin 0.34 AST 20 ALT 16 Alkaline Phosphatase 65 Total Protein 5.9 Albumin 3.4 Globulin 2.4 Albumin/Globulin Ratio 1.4 Urine Color Yellow Urine Clarity Clear Urine pH 6.0 Ur Specific [place] 1.020 Urine Protein 15 H Urine Glucose (UA) Normal Urine Ketones Negative Urine Occult Blood 150 H Urine Nitrite Negative Urine Bilirubin Negative Urine Urobilinogen Normal Ur Leukocyte Esterase Negative Urine RBC 25-50 SEEN Urine WBC 0-5 SEEN Ur Squamous Epith Cells 0-5 SEEN Urine Bacteria 1+ Urine Mucus 0 SEEN Urine Opiates Screen NEGATIVE U Buprenorphine Qual NEGATIVE Ur Oxycodone Screen NEGATIVE Urine Methadone Screen NEGATIVE Urine Fentanyl Screen NEGATIVE Ur Barbiturates Screen NEGATIVE Ur Phencyclidine Scrn NEGATIVE Ur Amphetamines Screen NEGATIVE U Benzodiazepines Scrn NEGATIVE Urine Cocaine Screen NEGATIVE U Cannabinoids Screen NEGATIVE Ethyl Alcohol < 10.1 Radiography Diagnostic Testing: Clinical Impression(s) from Imaging Studies Brain CT 10/22/24 23:04 IMPRESSION: No acute intracranial abnormality. Chronic microvascular ischemia and involutional changes. [facility] T[facility] Chief Complaint: Mental Health ED Provider: Huber Zepeda Dx/Rx/DC Orders Clinical Impression: Encounter for medical screening examination Prescriptions: No Action L-Lysine 500 MG capsule 500 mg PO DAILY furosemide 80 MG tablet 40 mg PO DAILY aspirin 81 mg capsule 81 mg PO DAILY carbidopa-levodopa 25-100 mg tablet 1 tab PO TID cimetidine 200 mg tablet 200 mg PO BID Rx Instructions: administer with meals haloperidol lactate 5 mg/mL syringe 2.5 mg .Route Q6H PRN Rx Instructions: IM q6 hr PRN furosemide 40 mg tablet 40 mg PO DAILY PRN (Reason: edema) loratadine [Allerclear] 10 mg tablet 10 mg PO DAILY losartan-hydrochlorothiazide 50-12.5 mg tablet 1 tab PO BID melatonin 3 mg capsule 3 mg PO DAILY meloxicam 7.5 mg tablet 7.5 mg PO DAILY PRN (Reason: pain) memantine 5 mg tablet 5 mg PO QHS tamsulosin 0.4 mg capsule 0.4 mg PO DAILY hydroxyzine pamoate 25 mg capsule 25 mg PO BID Primary Care Provider: Flor Ragland Referrals: Flor Ragland MD [Primary Care Provider] - Activity Restrictions/Additional Instructions: Take daily medications as prescribed. Follow-up with your doctor in outpatient setting. Return with any other concerns Print Language: Luxembour[place] Disposition Disposition: Home, Self Care
[2024-10-23 00:31] LABS: Absolute Neutrophil Count 4.9 X10^3/uL (2.0-7.7); Basophil# 0.12 X10^3/uL; Basophil% 1.4 % (0-1); Eosinophil# 0.76 X10^3/uL; Eosinophils% 8.8 % (0-5); Hemoglobin 14.8 g/dL (13.0-16.5); Lymphocyte % 18.6 % (19-41); Mean Corp Hgb Conc 33.6 g/dL (32-36); Mean Corpuscular Volume 89.2 fL (80-94); Mean Platelet Vol. 10.5 fl (6.2-12.0); Monocyte# 1.18 X10^3/uL; Monocyte% 13.7 % (0-10); NRBC Flagged by Analyzer 0 % (0-5); Neutrophil # 4.89 X10^3/uL (2.7-7.7); Platelet Count 306 K/mm3 (150-450); RBC Distribution Width SD 45.6 fl (35.1-43.9); Red Blood Count 4.93 M/mm3 (4.6-6.2); White Blood Count 8.6 K/mm3 (4.4-11.0)
[2024-10-23 00:38] LABS: ALB/GLOB Ratio 1.4 RATIO (0.9-2.4); AST(SGOT) 20 U/L (<=37); Alanine Aminotransfer ALT/SGPT 16 U/L (<=46); Albumin, Serum 3.4 g/dL (3.4-4.8); Alkaline Phosphatase 65 U/L (40-129); Anion Gap 10 (5-15); BUN 17 mg/dL (4-19); BUN/Creat Ratio 18.7 RATIO (10-20); Calcium,Total 8.4 mg/dL (7.6-11.0); Carbon Dioxide 26.4 mmol/L (21.0-32.0); Chloride 103 mmol/L (98-108); Creatinine, Serum 0.89 mg/dL (0.70-1.20); EST Glomerular Filtration Rate 88 (>60); Estimated Creatinine Clearance 87.74 ml/min (50-250); Globulin 2.4 g/dL (2.2-4.2); Glucose 99 mg/dL (70-99); Potassium 3.6 mmol/L (3.3-5.1); Protein, Total 5.9 g/dL (5.9-8.4); Sodium Level 139 mmol/L (133-145); Total Bilirubin 0.34 mg/dL (0.00-1.30)
[2024-10-23 00:47] VITALS: PULSE 70; RESP 18; O2SAT 97
[2024-10-23 01:09] LABS: Mucous, Urine 0 SEEN /hpf (<or=2+)
[2024-10-23 01:14] LABS: Color, Urine Yellow (Yellow); Glucose, Dipstick Normal (Normal); Ketone-Dipstick Negative (Negative); Leukocyte Esterase-Dipstick Negative /ul (Negative); Nitrite-Dipstick Negative (Negative); Occult Blood-Urine 150 /ul (Negative); Protein-Dipstick 15 mg/dl (Negative); Urine Bilirubin Dipstick Negative (Negative); Urine Clarity Clear (Clear); Urine Urobilinogen Normal (Normal)
[2024-10-23 01:33] LABS: Bacteria 1+ /hpf (None Seen); Red Blood Cells-Urine 25-50 SEEN /hpf (0-5); Squamous Epithelial Cells - UA 0-5 SEEN /hpf (0-5); White Blood Cells 0-5 SEEN /hpf (0-5)
[2024-10-23 01:39] LABS: Alcohol, Blood (Medical)-Serum < 10.1 mg/dL (<=10.0)
[2024-10-23 01:39] LABS: Amphetamine Urine NEGATIVE (<1000 ng/mL); Barbiturate Urine NEGATIVE (< 200 ng/mL); Benzodiazepine Urine NEGATIVE (< 200 ng/mL); Buprenorphine Urine NEGATIVE (< 200 ng/mL); Cocaine Urine NEGATIVE (< 300 ng/mL); Fentanyl, Urine NEGATIVE; Methadone Urine NEGATIVE (< 300 ng/mL); Opiates Urine NEGATIVE (< 300 ng/mL); Oxycodone, Urine NEGATIVE (< 100 ng/mL); PCP Urine NEGATIVE (< 25 ng/mL); THC Urine NEGATIVE (< 50 ng/mL)
--- NOTE | 2024-10-23 02:12 | PCA ---
CRISIS CALLED, CHART FAXED
--- NOTE | 2024-10-23 02:13 | ED.RN ---
Pt yelling and being inappropriate with this RN. RN told this patient this behavior is not tolerated and it is 0215 in the morning and it would be in his best interest to get some sleep.
--- NOTE | 2024-10-23 02:24 | ED.RN ---
PATIENT FOUND WONDERING IN THE ROOM. PT STATES HE WANTS TO GET DRESSED TO GO OUTSIDE. RN STATES YOU CANNOT LEAVE RIGHT NOW. PT STATES WELL JUST HELP ME GET THIS ON. RN STATES PLEASE GET BACK IN BED. PT YELLS CAN YOU JUST HELP ME. PT PLACED BACK IN BED SAFELY, ADULT DIAPER PLACED.
[2024-10-23] MEDS: Haloperidol Lactate 5 MG/ML Vial 2.5 MG IM ×2 (02:36→07:22)
--- NOTE | 2024-10-23 02:49 | ED.RN ---
0246: PT. FOUND STANDING IN THE DOORWAY AND UNSTEADY. PT. DIFFICULT TO REDIRECT BACK INTO ROOM. SECURITY Joyce DRUMMOND AT BEDSIDE. 0248: ENCOURAGED TO GET BACK INTO BED. PT. ANGRY AND LOUDLY STATED I AM TRYING TO GET OUT THERE WHILE FLAILING ARMS. PT. STATED I WILL NOT TAKE ORDERS FROM NURSES. I WILL ONLY LISTEN TO SECURITY WHILE AHIL-DO-TAXW WITH SECURITY AND POINTING AT HIS VEST. 0250: PT. ASSISTED BACK INTO BED. EQUIPMENT REMOVED FROM ROOM DUE TO INCREASING AGITATION AND FREQUENCY OF BEHAVIORS. 0252: CRISIS AT BEDSIDE.
--- NOTE | 2024-10-23 03:12 | ED.RN ---
Addendum entered by Samuel Combs 10/23/24 03:19: Matt Samaniego returned call, gave update on patient, no questions at this time. Original Note: Attempted to contact Matt Samaniego to give update on patient's plan of care, unable to reach at this time.
[2024-10-23 04:44] VITALS: BP 127/82; PULSE 75; RESP 18; TEMP 36.7; O2SAT 98
--- NOTE | 2024-10-23 07:47 | ED.RN ---
PTS DAUGHTER CALLED FOR AN UPDATE. THIS NURSE ADVISED DAUGHTER HER FATHER WAS CLEARED BY CRISIS TO RETURN TO HIS FACILITY. SHE WAS HAPPY WITH THE UPDATE.
[2024-10-23] MEDS: Carbidopa/Levodopa 25/100 Tablet PO (08:32)
== END 2024-10-23 09:45 | disposition home or self-care (01) ==
PROVIDERS: Emergency Provider Emergency Medicine; PCP Hospitalist; Visit Provider Emergency Medicine
DX: Z00.00 Encounter for general adult medical examination without abnormal findings (principal); G20.A1 Parkinson's disease without dyskinesia, without mention of fluctuations; F03.90 Unspecified dementia, unspecified severity, without behavioral disturbance, psychotic disturbance, mood disturbance, and anxiety; J44.9 Chronic obstructive pulmonary disease, unspecified; R00.1 Bradycardia, unspecified; Z51.5 Encounter for palliative care; I12.9 Hypertensive chronic kidney disease with stage 1 through stage 4 chronic kidney disease, or unspecified chronic kidney disease; E78.5 Hyperlipidemia, unspecified; N18.9 Chronic kidney disease, unspecified; Z79.01 Long term (current) use of anticoagulants; Z79.85 Long-term (current) use of injectable non-insulin antidiabetic drugs; Z79.899 Other long term (current) drug therapy; F99 Mental disorder, not otherwise specified
CPT/HCPCS: 70450; 80053; 80307; 81001; 82077; 85025; 93005; 99285